=== PATIENT | female | born 1990 | race Hispanic/Latino ===

== ENCOUNTER 2017-05-24 18:06 | Emergency (ER) | payer MEDICAID ==
--- NOTE | 2017-05-24 18:48 | C.PDOC ---
History Of Present Illness Patient presents to ED requesting alcohol detox. She states she is a daily drinker , and last ETOH use was approx 7 hrs ago. She is c/o feeling mildly tremulous and nauseous. Time Seen by Provider: 05/24/17 18:45 Chief Complaint (Nursing): Substance Abuse History Per: Patient History/Exam Limitations: no limitations Onset/Duration Of Symptoms: Persistent Modifying Factor(s): Alcohol Severity: Moderate Associated Symptoms: denies: Anxiety, Depression, Suicidal Thoughts Past Medical History Reviewed: Historical Data, Nursing Documentation, Vital Signs Vital Signs: Last Vital Signs Temp 98.2 F 05/24/17 19:22 Pulse 98 H 05/24/17 19:22 Resp 16 05/24/17 19:22 BP 140/70 05/24/17 19:22 Pulse Ox 100 05/24/17 19:22 - Medical History PMH: Anxiety, Depression, Seizures (when withdrawing from alcohol) Family History: States: No Known Family Hx - Social History Hx Alcohol Use: Yes Hx Substance Use: No - Immunization History Hx Tetanus Toxoid Vaccination: No Hx Influenza Vaccination: No Hx Pneumococcal Vaccination: No Review Of Systems Except As Marked, All Systems Reviewed And Found Negative. Constitutional: Negative for: Fever, Chills Cardiovascular: Negative for: Chest Pain, Palpitations Respiratory: Negative for: Cough, Shortness of Breath Gastrointestinal: Positive for: Nausea. Negative for: Vomiting, Abdominal Pain Psych: Positive for: Other (alcohol dependence) Physical Exam - Physical Exam Appears: Well, Non-toxic, No Acute Distress Head: Normacephalic Eye(s): bilateral: Normal Inspection Oral Mucosa: Moist Cardiovascular: Rhythm Regular (mildly tachycardic ) Respiratory: Normal Breath Sounds, No Rales, No Rhonchi, No Wheezing Gastrointestinal/Abdominal: Normal Exam, Bowel Sounds, Soft, No Tenderness Extremity: Other (mild tremors of upper extremities ) Neurological/Psych: Oriented x3 ED Course And Treatment O2 Sat by Pulse Oximetry: 98 (RA) Pulse Ox Interpretation: Normal Progress Note: Spoke with crisis, no detox beds are currently available. Patient given PO ativan and PO zofran ODT. Rxs given for zofran ODT and librium taper. She was instructed to return tomorrow or call for prescreening, and understands she should return to ED if symptoms worsen. Disposition Counseled Patient/Family Regarding: Diagnosis, Need For Followup - Disposition Referrals: [facility] [Outside] Disposition: HOME/ ROUTINE Disposition Time: 19:15 Condition: STABLE Additional Instructions: RETURN TO ER AT LATER DATE FOR DETOX BED OR CALL [phone] FOR PRESCREENING USE MEDICATION NEEDED FOR NAUSEA RETURN TO ER IF YOU HAVE ANY CONCERNING SYMPTOMS Prescriptions: chlordiazePOXIDE [Chlordiazepoxide HCl] 25 mg PO PRN #28 cap Ondansetron [Zofran Odt] 4 mg PO Q8 PRN #10 odt PRN Reason: Nausea/Vomiting Instructions: Alcohol Dependence (ED) Print Language: UGANDAN - POA Present On Arrival: None - Clinical Impression Clinical Impression: Alcohol dependence
[2017-05-24 19:23] VITALS: BP 140/70; PULSE 98; RESP 16; TEMP 98.2
[2017-06-02 17:37] VITALS: O2SAT 98
== END 2017-05-24 19:22 | disposition home or self-care (01) ==
LOC: C.ER 18:06
DX: F10.20 Alcohol dependence, uncomplicated (principal); Y90.9 Presence of alcohol in blood, level not specified

== ENCOUNTER 2018-03-29 09:14 | Inpatient (IN) | payer MEDICAID, OTHER ==
--- NOTE | 2018-03-29 09:58 | C.PDOC ---
History Of Present Illness 27-year-old female, PMHx includes metastatic colon CA complaints of increasing abdominal pain x1 week. Pt notes she has had this pain intermittently for 4 months but now her breakthrough pain medication is not helping. Patient denies fever or vomiting. She admits to taking chronic pain meds, Fentanyl patch and Oxycodone without relief. Time Seen by Provider: 03/29/18 09:37 Chief Complaint (Nursing): Abdominal Pain History Per: Patient History/Exam Limitations: no limitations Current Symptoms Are (Timing): Still Present Past Medical History Reviewed: Historical Data, Nursing Documentation, Vital Signs Vital Signs: Last Vital Signs Temp 98 F 03/29/18 17:12 Pulse 76 03/29/18 17:12 Resp 18 03/29/18 17:12 BP 106/73 03/29/18 17:12 Pulse Ox 98 03/29/18 17:12 - Medical History PMH: Anxiety, Depression, Seizures (when withdrawing from alcohol) Family History: States: No Known Family Hx - Social History Hx Alcohol Use: Yes Hx Substance Use: No - Immunization History Hx Tetanus Toxoid Vaccination: No Hx Influenza Vaccination: No Hx Pneumococcal Vaccination: No Review Of Systems Constitutional: Negative for: Fever Cardiovascular: Negative for: Chest Pain Respiratory: Negative for: Shortness of Breath Gastrointestinal: Positive for: Abdominal Pain. Negative for: Vomiting Neurological: Negative for: Weakness, Numbness, Headache, Dizziness Physical Exam - Physical Exam Appears: Non-toxic, In Acute Distress (crying in painful distress), Chronically Ill (crying) Skin: Normal Color, Warm, Dry, No Rash Head: Atraumatic, Normacephalic Eye(s): bilateral: Normal Inspection, EOMI Nose: Normal Oral Mucosa: Moist Neck: Normal ROM Chest: Symmetrical Cardiovascular: Rhythm Regular, No Murmur Respiratory: Normal Breath Sounds, No Accessory Muscle Use Gastrointestinal/Abdominal: Soft, Tenderness (diffuse), No Guarding, No Rebound , Other (Ileostomy bag with brown stools) Extremity: Normal ROM, No Deformity, No Swelling Neurological/Psych: Oriented x3, Normal Speech ED Course And Treatment - Laboratory Results Result Diagrams: 03/29/18 10:22 03/29/18 10:22 O2 Sat by Pulse Oximetry: 100 (RA) Pulse Ox Interpretation: Normal Progress Note: Case discussed with Dr Laurent, agrees upon admission and requests [facility] for medical admission. Case discussed with Dr Mohan, who evaluated pt in ED and agreed upon admission. Disposition - Disposition Disposition: HOSPITALIZED Disposition Time: 12:00 Condition: STABLE - Clinical Impression Clinical Impression: Intractable abdominal pain, Metastatic colon cancer in female - Scribe Statement The provider has reviewed the documentation as recorded by the Scribe (Jyotsna Ariza) All medical record entries made by the Scribe were at my direction and personally dictated by me. I have reviewed the chart and agree that the record accurately reflects my personal performance of the history, physical exam, medical decision making, and the department course for this patient. I have also personally directed, reviewed, and agree with the discharge instructions and disposition.
[2018-03-29] MEDS ORDERED: Morphine 4 MG/ML VIAL ONE (10:29)
[2018-03-29 10:32] LABS: BASO % 0.5 % (0.0-2.0); EOS # 0.2 K/uL (0.0-0.7); HEMOGLOBIN 10.3 g/dL (11.0-16.0); LYMPH # 0.5 K/uL (1.0-4.3); LYMPH % 5.5 % (20.0-40.0); MEAN CELL VOLUME 85.4 fL (81.0-99.0); MEAN CORPUSCULAR HEMOGLOBIN 29.8 pg (27.0-31.0); MEAN CORPUSCULAR HGB CONC 34.9 g/dL (33.0-37.0); MEAN PLATELET VOLUME 6.3 fL (7.2-11.7); MONO # 0.8 K/uL (0.0-0.8); MONO % 9.1 % (0.0-10.0); NEUT # 7.2 K/uL (1.8-7.0); NEUT % 82.9 % (50.0-75.0); PLATELET COUNT 466 K/uL (130-400); RBC 3.44 Mil/uL (3.80-5.20); WHITE BLOOD COUNT 8.7 K/uL (4.8-10.8)
[2018-03-29 10:58] LABS: EOSINOPHIL 1 % (0-4); LYMPHOCYTE 2 % (20-40); MONOCYTE 9 % (0-10); NEUTROPHIL 88 % (50-75); PLATELET ESTIMATE SLIGHTLY INCREASED (NORMAL); TOTAL CELLS COUNTED 100
[2018-03-29 11:00] LABS: ANISOCYTOSIS SLIGHT
[2018-03-29 11:01] LABS: OVALOCYTES SLIGHT
[2018-03-29] MEDS ORDERED: HYDROmorphone 1 mg/ml ISec IVP STA ×2 (11:02→12:32)
[2018-03-29 11:03] LABS: ALB/GLOB RATIO 0.9 (1.0-2.1); ALBUMIN 3.5 g/dL (3.5-5.0); ALT/SGPT 31 U/L (9-52); AST/SGOT 29 U/L (14-36); BLOOD UREA NITROGEN 5 mg/dL (7-17); GFR AFRICAN-AMERICAN > 60; GFR NON-AFRICAN AMERICAN > 60; LIPASE 71 U/L (23-300)
[2018-03-29] MEDS ORDERED: HYDROmorphone 0.5 mg/0.5 ml ISec IVP STA (11:04)
[2018-03-29 13:04] LABS: HCG,QUALITATIVE URINE NEGATIVE (NEGATIVE)
[2018-03-29 13:11] LABS: SQUAMOUS EPITHIAL 1 /hpf (0-5); URINE BACTERIA RARE (<OCC); URINE BILIRUBIN NEGATIVE (NEGATIVE); URINE BLOOD 1+ (NEGATIVE); URINE CLARITY Clear (Clear); URINE COLOR Straw (YELLOW); URINE GLUCOSE (UA) NORMAL (Normal); URINE LEUKOCYTE ESTERASE 1+ Leu/uL (Negative); URINE PROTEIN NEGATIVE (NEGATIVE); URINE UROBILINOGEN NORMAL mg/dL (0.2-1.0)
[2018-03-29] MEDS: Sodium Chloride 0.9% 1,000 ML IV SCH ×2 (13:18→22:22)
[2018-03-29 14:14] LABS: BARBITURATES, UR NEGATIVE (NEGATIVE); BENZODIAZEPINES, UR NEGATIVE (NEGATIVE); PHENCYCLIDINE, UR NEGATIVE (NEGATIVE)
[2018-03-29 15:07] LABS: OPIATES, UR POSITIVE (NEGATIVE)
[2018-03-29] MEDS ORDERED: Oxycodone/Acetaminophen 5/325 mg Tab ONE (15:40)
[2018-03-29] MEDS: Oxycodone/Acetaminophen 5/325 mg Tab PO PRN (15:47)
--- NOTE | 2018-03-29 17:16 | CP.PCM.CON ---
History of Present Illness - History of Present Illness History of Present Illness: 27 year old F with h/o metastatic colon ca here complaining of diffuse increase in abdominal pain over last week. Patient states she sees oncologist Dr. Laurent who manages her pain. At home she takes oxycodone ER 60mg BID and oxycodone 10mg q4hr PRN for breakthrough pain which usually helps but has not been helping over the last week. Patient tried fentanyl patch in the past with no relief. Patient denies chest pain or shortness of breath, drowsiness with these medications, constipation, or other symptoms. Past Patient History - Infectious Disease Hx of Infectious Diseases: None - Past Medical History & Family History Past Medical History?: Yes - Past Social History Smoking Status: Heavy Smoker > 10 Cigarettes Daily - CARDIAC Hx Hypertension: No - PULMONARY Hx Respiratory Disorders: No - NEUROLOGICAL Hx Seizures: Yes (when withdrawing from alcohol) - HEENT Hx HEENT Problems: No - RENAL Hx Chronic Kidney Disease: No - ENDOCRINE/METABOLIC Hx Endocrine Disorders: No - HEMATOLOGICAL/ONCOLOGICAL Hx Human Immunodeficiency Virus (HIV): No - INTEGUMENTARY Hx Dermatological Problems: No - MUSCULOSKELETAL/RHEUMATOLOGICAL Hx Musculoskeletal Disorders: No - GASTROINTESTINAL Other/Comment: SMALL BOWEL CA - GENITOURINARY/GYNECOLOGICAL Hx Sexually Transmitted Disorders: No - PSYCHIATRIC Hx Anxiety: Yes Hx Depression: Yes Hx Substance Use: No - SURGICAL HISTORY Hx Orthopedic Surgery: Yes (R ANKLE) Other/Comment: BOWEL RESECTION - ANESTHESIA Hx Anesthesia: Yes Hx Anesthesia Reactions: No Hx Malignant Hyperthermia: No Meds Allergies/Adverse Reactions: Allergies Allergy/AdvReac Type Severity Reaction Status Date / Time gabapentin Allergy Verified 03/29/18 09:18 - Medications Medications: Current Medications Heparin Sodium (Porcine) (Heparin) 5,000 units SC Q12 CHASE Hydromorphone HCl (Dilaudid) 2 mg IVP Q4 PRN PRN Reason: Pain, severe (8-10) Last Admin: 03/29/18 13:42 Dose: 2 mg Sodium Chloride (Sodium Chloride 0.9%) 1,000 mls @ 100 mls/hr IV .Q10H CHASE Last Admin: 03/29/18 13:18 Dose: 100 mls/hr Oxycodone/Acetaminophen (Percocet 5/325 Mg Tab) 1 tab PO Q6H PRN PRN Reason: Pain, Mild (1-3) Stop: 04/01/18 15:47 Last Admin: 03/29/18 15:47 Dose: 1 tab Pantoprazole Sodium (Protonix Inj) 40 mg IVP DAILY CHASE Physical Exam - Constitutional Appears: Well - Respiratory Exam Respiratory Exam: Clear to Auscultation Bilateral, NORMAL BREATHING PATTERN - Cardiovascular Exam Cardiovascular Exam: REGULAR RHYTHM - GI/Abdominal Exam GI & Abdominal Exam: Normal Bowel Sounds, Soft - Extremities Exam Additional comments: warm, well perfused - Back Exam Back exam: NORMAL INSPECTION - Psychiatric Exam Psychiatric exam: Normal Affect, Normal Mood Results - Vital Signs Recent Vital Signs: Last Vital Signs Temp 98 F 03/29/18 13:18 Pulse 98 H 03/29/18 15:51 Resp 28 H 03/29/18 15:51 BP 100/57 L 03/29/18 15:51 Pulse Ox 98 03/29/18 13:18 - Labs Result Diagrams: 03/29/18 10:22 03/29/18 10:22 Labs: Laboratory Results - last 24 hr 03/29/18 03/29/18 03/29/18 09:59 10:22 10:22 WBC 8.7 RBC 3.44 L Hgb 10.3 L D Hct 29.4 L MCV 85.4 D MCH 29.8 MCHC 34.9 RDW 16.0 H Plt Count 466 H D MPV 6.3 L Neut % (Auto) 82.9 H Lymph % (Auto) 5.5 L [place] % (Auto) 9.1 Eos % (Auto) 2.0 Baso % (Auto) 0.5 Neut # (Auto) 7.2 H Lymph # (Auto) 0.5 L [place] # (Auto) 0.8 Eos # (Auto) 0.2 Baso # (Auto) 0.0 Neutrophils % (Manual) 88 H Lymphocytes % (Manual) 2 L Monocytes % (Manual) 9 Eosinophils % (Manual) 1 Platelet Estimate Slightly increased H Basophilic Stippling Slight Anisocytosis (manual) Slight Ovalocytes Slight Sodium 142 Potassium 4.0 Chloride 102 Carbon Dioxide 26 Anion Gap 17 BUN 5 L Creatinine 0.5 L Est GFR ( Amer) > 60 Est GFR (Non-Af Amer) > 60 Random Glucose 107 H Calcium 9.0 Total Bilirubin 0.3 AST 29 ALT 31 Alkaline Phosphatase 115 Total Protein 7.2 Albumin 3.5 D Globulin 3.7 Albumin/Globulin Ratio 0.9 L Lipase 71 Urine Color Urine Clarity Urine pH Ur Specific [place] Urine Protein Urine Glucose (UA) Urine Ketones Urine Blood Urine Nitrate Urine Bilirubin Urine Urobilinogen Ur Leukocyte Esterase Urine WBC (Auto) Urine RBC (Auto) Ur Squamous Epith Cells Urine Bacteria Urine HCG, Qual Urine Opiates Screen Positive H Urine Methadone Screen Negative Ur Barbiturates Screen Negative Ur Phencyclidine Scrn Negative Ur Amphetamines Screen Negative U Benzodiazepines Scrn Negative U Oth Cocaine Metabols Negative U Cannabinoids Screen Positive H 03/29/18 12:53 WBC RBC Hgb Hct MCV MCH MCHC RDW Plt Count MPV Neut % (Auto) Lymph % (Auto) [place] % (Auto) Eos % (Auto) Baso % (Auto) Neut # (Auto) Lymph # (Auto) [place] # (Auto) Eos # (Auto) Baso # (Auto) Neutrophils % (Manual) Lymphocytes % (Manual) Monocytes % (Manual) Eosinophils % (Manual) Platelet Estimate Basophilic Stippling Anisocytosis (manual) Ovalocytes Sodium Potassium Chloride Carbon Dioxide Anion Gap BUN Creatinine Est GFR ( Amer) Est GFR (Non-Af Amer) Random Glucose Calcium Total Bilirubin AST ALT Alkaline Phosphatase Total Protein Albumin Globulin Albumin/Globulin Ratio Lipase Urine Color Straw Urine Clarity Clear Urine pH 6.0 Ur Specific [place] 1.004 Urine Protein Negative Urine Glucose (UA) Normal Urine Ketones Negative Urine Blood 1+ H Urine Nitrate Negative Urine Bilirubin Negative Urine Urobilinogen Normal Ur Leukocyte Esterase 1+ H Urine WBC (Auto) 6 H Urine RBC (Auto) 5 H Ur Squamous Epith Cells 1 Urine Bacteria Rare Urine HCG, Qual Negative Urine Opiates Screen Urine Methadone Screen Ur Barbiturates Screen Ur Phencyclidine Scrn Ur Amphetamines Screen U Benzodiazepines Scrn U Oth Cocaine Metabols U Cannabinoids Screen Assessment & Plan - Assessment and Plan (Free Text) Assessment: Patient states she in 10/10 pain and unable to function at home 2/2 to pain. I have confirmed her doses of narcotics with her oncologist and recommend restarting her home meds along with the following: -restart home dose of oxycodone ER 60mg BID -restart home dose of oxycodone 10mg q4hr PRN -add 1mg hydromorphone IV q3h for breakthrough pain -bowel regimen
[2018-03-29] MEDS: HYDROmorphone 1 mg/ml ISec IVP PRN ×2 (18:16→22:19)
--- NOTE | 2018-03-29 18:20 | CP.PCM.CON ---
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 She was found to have disease recurrence locally and underwent surgery, colostomy, followed by chemotherapy and radiation completed around 6 weeks ago in [place], [place]. The patient has currently moved back here for additional treatment. Recent PET scan showing left ovarian mass with possible fistulous tract into rectum and new subcentimeter lung lesions. She has been complaining of increasing pain in the pelvic region with little relief after radiation therapy Past Patient History - Infectious Disease Hx of Infectious Diseases: None - Past Medical History & Family History Past Medical History?: Yes - Past Social History Smoking Status: Heavy Smoker > 10 Cigarettes Daily - CARDIAC Hx Hypertension: No - PULMONARY Hx Respiratory Disorders: No - NEUROLOGICAL Hx Seizures: Yes (when withdrawing from alcohol) - HEENT Hx HEENT Problems: No - RENAL Hx Chronic Kidney Disease: No - ENDOCRINE/METABOLIC Hx Endocrine Disorders: No - HEMATOLOGICAL/ONCOLOGICAL Hx Human Immunodeficiency Virus (HIV): No - INTEGUMENTARY Hx Dermatological Problems: No - MUSCULOSKELETAL/RHEUMATOLOGICAL Hx Musculoskeletal Disorders: No - GASTROINTESTINAL Other/Comment: SMALL BOWEL CA - GENITOURINARY/GYNECOLOGICAL Hx Sexually Transmitted Disorders: No - PSYCHIATRIC Hx Anxiety: Yes Hx Depression: Yes Hx Substance Use: No - SURGICAL HISTORY Hx Orthopedic Surgery: Yes (R ANKLE) Other/Comment: BOWEL RESECTION - ANESTHESIA Hx Anesthesia: Yes Hx Anesthesia Reactions: No Hx Malignant Hyperthermia: No Meds Allergies/Adverse Reactions: Allergies Allergy/AdvReac Type Severity Reaction Status Date / Time gabapentin Allergy Verified 03/29/18 09:18 - Medications Medications: Current Medications Heparin Sodium (Porcine) (Heparin) 5,000 units SC Q12 CHASE Hydromorphone HCl (Dilaudid) 2 mg IVP Q4 PRN PRN Reason: Pain, severe (8-10) Last Admin: 03/29/18 13:42 Dose: 2 mg Sodium Chloride (Sodium Chloride 0.9%) 1,000 mls @ 100 mls/hr IV .Q10H CHASE Last Admin: 03/29/18 13:18 Dose: 100 mls/hr Oxycodone/Acetaminophen (Percocet 5/325 Mg Tab) 1 tab PO Q6H PRN PRN Reason: Pain, Mild (1-3) Stop: 04/01/18 15:47 Last Admin: 03/29/18 15:47 Dose: 1 tab Pantoprazole Sodium (Protonix Inj) 40 mg IVP DAILY CHASE Results - Vital Signs Recent Vital Signs: Last Vital Signs Temp 98.2 F 03/29/18 17:45 Pulse 75 03/29/18 17:45 Resp 18 03/29/18 17:45 BP 103/65 03/29/18 17:45 Pulse Ox 100 03/29/18 17:45 - Labs Result Diagrams: 03/29/18 10:22 03/29/18 10:22 Labs: Laboratory Results - last 24 hr 03/29/18 03/29/18 03/29/18 09:59 10:22 10:22 WBC 8.7 RBC 3.44 L Hgb 10.3 L D Hct 29.4 L MCV 85.4 D MCH 29.8 MCHC 34.9 RDW 16.0 H Plt Count 466 H D MPV 6.3 L Neut % (Auto) 82.9 H Lymph % (Auto) 5.5 L [place] % (Auto) 9.1 Eos % (Auto) 2.0 Baso % (Auto) 0.5 Neut # (Auto) 7.2 H Lymph # (Auto) 0.5 L [place] # (Auto) 0.8 Eos # (Auto) 0.2 Baso # (Auto) 0.0 Neutrophils % (Manual) 88 H Lymphocytes % (Manual) 2 L Monocytes % (Manual) 9 Eosinophils % (Manual) 1 Platelet Estimate Slightly increased H Basophilic Stippling Slight Anisocytosis (manual) Slight Ovalocytes Slight Sodium 142 Potassium 4.0 Chloride 102 Carbon Dioxide 26 Anion Gap 17 BUN 5 L Creatinine 0.5 L Est GFR ( Amer) > 60 Est GFR (Non-Af Amer) > 60 Random Glucose 107 H Calcium 9.0 Total Bilirubin 0.3 AST 29 ALT 31 Alkaline Phosphatase 115 Total Protein 7.2 Albumin 3.5 D Globulin 3.7 Albumin/Globulin Ratio 0.9 L Lipase 71 Urine Color Urine Clarity Urine pH Ur Specific [place] Urine Protein Urine Glucose (UA) Urine Ketones Urine Blood Urine Nitrate Urine Bilirubin Urine Urobilinogen Ur Leukocyte Esterase Urine WBC (Auto) Urine RBC (Auto) Ur Squamous Epith Cells Urine Bacteria Urine HCG, Qual Urine Opiates Screen Positive H Urine Methadone Screen Negative Ur Barbiturates Screen Negative Ur Phencyclidine Scrn Negative Ur Amphetamines Screen Negative U Benzodiazepines Scrn Negative U Oth Cocaine Metabols Negative U Cannabinoids Screen Positive H 03/29/18 12:53 WBC RBC Hgb Hct MCV MCH MCHC RDW Plt Count MPV Neut % (Auto) Lymph % (Auto) [place] % (Auto) Eos % (Auto) Baso % (Auto) Neut # (Auto) Lymph # (Auto) [place] # (Auto) Eos # (Auto) Baso # (Auto) Neutrophils % (Manual) Lymphocytes % (Manual) Monocytes % (Manual) Eosinophils % (Manual) Platelet Estimate Basophilic Stippling Anisocytosis (manual) Ovalocytes Sodium Potassium Chloride Carbon Dioxide Anion Gap BUN Creatinine Est GFR ( Amer) Est GFR (Non-Af Amer) Random Glucose Calcium Total Bilirubin AST ALT Alkaline Phosphatase Total Protein Albumin Globulin Albumin/Globulin Ratio Lipase Urine Color Straw Urine Clarity Clear Urine pH 6.0 Ur Specific [place] 1.004 Urine Protein Negative Urine Glucose (UA) Normal Urine Ketones Negative Urine Blood 1+ H Urine Nitrate Negative Urine Bilirubin Negative Urine Urobilinogen Normal Ur Leukocyte Esterase 1+ H Urine WBC (Auto) 6 H Urine RBC (Auto) 5 H Ur Squamous Epith Cells 1 Urine Bacteria Rare Urine HCG, Qual Negative Urine Opiates Screen Urine Methadone Screen Ur Barbiturates Screen Ur Phencyclidine Scrn Ur Amphetamines Screen U Benzodiazepines Scrn U Oth Cocaine Metabols U Cannabinoids Screen
[2018-03-29] MEDS: Naproxen 550 mg Tab PO SCH (19:53)
[2018-03-29] MEDS: Lidocaine 5% Oint(35 gm) TOP SCH (20:00)
[2018-03-30] MEDS: Oxycodone/Acetaminophen 5/325 mg Tab PO PRN ×4 (00:04→17:03)
[2018-03-30 01:03] VITALS: RESP 20
[2018-03-30] MEDS: HYDROmorphone 1 mg/ml ISec IVP PRN ×6 (02:20→22:00)
[2018-03-30] MEDS: Naproxen 550 mg Tab PO SCH ×2 (09:25→17:04)
[2018-03-30] MEDS: Lidocaine 5% Oint(35 gm) TOP SCH ×3 (09:27→17:04)
[2018-03-30] MEDS: Sodium Chloride 0.9% 1,000 ML IV SCH ×2 (09:28→19:50)
[2018-03-30] MEDS ORDERED: Pneumococcal 23-Valent Vaccine IM ONE (10:00)
[2018-03-30] MEDS: oxyCODONE 40 mg ER Tab (oxyCONTIN) PO SCH ×2 (12:47→21:03)
--- NOTE | 2018-03-30 14:23 | PCM.PSYCH ---
Initial Psychiatric Evaluation - Initial Psychiatric Evaluation Type of Admission: Voluntary Legal Status: Capacity Chief Complaint (in patient's own words): "I'm miserable" History of Present Illness and Precipitating Events: HPI: Consultation was requested for her suicidal remark. She also threatened to leave AMA. She is well-known to this policy writer typist from previous admissions. This is a 27 year-old female with PMHx of alcohol use disorder, depression, and metastatic colon cancer admitted for pain management. Psychiatry consulted when patient was overheard crying on her phone saying "the pain is so bad, do I have to kill myself to make it stop?" Upon questioning, patient states she is not actually suicidal, and that she was just venting to her boyfriend because she feels so miserable and that she had not received medications in a timely manner. She complains of severe pain, depression, and anxiety. She says she is depressed b/c she "may be dying, and the pain is everywhere." She is receptive to medication for depression and anxiety. Denies hallucinations, suicidal or homicidal ideation. She contracts for safety. Psych hx: depression, alcoholism, multiple psych admissions, no attempts Family hx: grandfather (schizophrenia, commit suicide); aunt (depression, commit suicide) Social hx: lives with boyfriend; history of alcohol abuse with multiple detox, patient states she has been sober for the past 7 months Current Medications: Active Medications Generic Name Dose Route Start Last Admin Trade Name Freq PRN Reason Stop Dose Admin Clonazepam 1 mg 03/30/18 18:00 Klonopin PO BID CHASE Heparin Sodium (Porcine) 5,000 units 03/29/18 22:00 03/30/18 09:31 Heparin SC 5,000 units Q12 CHASE Administration Hydromorphone HCl 2 mg 03/29/18 18:15 03/30/18 10:20 Dilaudid IVP 2 mg Q4 PRN Administration Pain, severe (8-10) Sodium Chloride 1,000 mls @ 100 mls/hr 03/29/18 13:15 03/30/18 09:28 Sodium Chloride 0.9% IV 100 mls/hr .Q10H CHASE Administration Lidocaine 0.5 gm 03/29/18 19:45 03/30/18 14:05 Lidocaine 5% TOP 1 applic TID CHASE Administration Mirtazapine 15 mg 03/30/18 22:00 Remeron PO HS CHASE Naproxen 550 mg 03/29/18 19:15 03/30/18 09:25 Anaprox Ds PO 550 mg BID CHASE Administration Oxycodone HCl 40 mg 03/30/18 12:00 03/30/18 12:47 Oxycontin Extended Release Tab PO 40 mg Q12 CHASE Administration Oxycodone/Acetaminophen 1 tab 03/29/18 15:46 03/30/18 11:15 Percocet 5/325 Mg Tab PO 04/01/18 15:47 1 tab Q6H PRN Administration Pain, Mild (1-3) Pantoprazole Sodium 40 mg 03/30/18 10:00 03/30/18 09:25 Protonix Inj IVP 40 mg DAILY CHASE Administration Past Psychiatric History - Past Psychiatric History Previous Treatment History: Inpatient Pertinent Medical Hx (Current Medical&Sleep Prob, Allergies): Allergies Allergy/AdvReac Type Severity Reaction Status Date / Time gabapentin Allergy Verified 03/29/18 09:18 Ibuprofen [Motrin Tab] 600 mg PO Q6 #30 tab 09/18/17 Fentanyl 1 each TD MWF 03/29/18 Oxycodone HCl [Oxycodone HCl ER] 60 mg PO BID 03/29/18 oxyCODONE [oxycodone Hydrochloride] 10 mg PO Q4H 03/29/18 Review of Systems - Psychiatric Psychiatric: Abnormal Sleep Pattern, Anxiety, Depression, Difficulty Concentrating, Irritability. absent: Hallucinations, Homicidal Ideation, Suicidal Ideation Mental Status Examination - Personal Presentation Personal Presentation: Looks stated age - Affect Affect: Depressed, Other (intense, tearful) Additional comments: Tearful - Motor Activity Motor Activity: Calm - Reliability in Providing Information Reliability in Providing Information: Good - Speech Speech: Organized - Mood Mood: Depressed, Anxious - Formal Thought Process Formal Thought Process: No Impairment - Cognitive Functions Orientation: Person, Place, Situation, Time Sensorium: Alert Attention/Concentration: Attentive Estimate of Intelligence: Average Judgement: Intact, as evidence by: Insight regarding need for hospitalization Memory: Recent intact, as evidence by: Ability to recall events of the day, Remote intact, as evidenced by: Abilit to recall sig. life events - Risk Risk: Diminished functioning - Strength & Assets Inventory Strength & Assets Inventory: Cooperative - Limitations Limitations: Other (cancer with met) DSM 5 DX - DSM 5 DSM 5 Diagnosis: Major Depressive Disorder - severe, recurrent, w/o psychosis Alcohol use d/o - in early remission Borderline Pers. D/O - Recommended/Plan of Treatment Treatment Recommendations and Plan of Treatment: Start Remeron 15 mg PO qHS, will increase to 30 mg for depression Klonopin 1 mg PO bid for anxiety Psychotherapy given Refer to psych after d/c Grief counseling 33 min
--- NOTE | 2018-03-30 15:35 | CP.PCM.CON ---
History of Present Illness - History of Present Illness History of Present Illness: Palliative consult requested by Doctor campbell for pain management and goals of care discussion Patient is a 27 yo lady admitted from home with abdominal pain X 1 day. patient was diagnosed with colon cancer in 2016, had chemo Tx for about 5 months and was lost sight of until some time this year with exacerbation of cancer symptoms. patient had colon surgery with colostomy creation. She completed the course of chemo and radiation about 6 weeks ago. between than and now, patient was hospitalized a few times at different hospitals for management of cancer symptoms. Patient fallowed by Doctor Laurent for cancer treatment. PMH: Colon cancer, 2016, S/P colostomy, chemo and radiation Soc.Hx: single, lives with boyfriend, sy at [facility]. Hx: Grandmother at age of 80 from colon cancer. Review of Systems - Constitutional Constitutional: Weight Loss, Weakness - EENT Eyes: absent: As Per HPI, Blind Spots, Blurred Vision, Change in Vision, Decreased Night Vision, Diplopia, Discharge, Dry Eye, Exophthalmos, Floaters, Irritation, Itchy Eyes, Loss of Peripheral Vision, Pain, Photophobia, Requires Corrective Lenses, Sees Flashes, Spots in Vision, Tunnel Vision, Other Visual Disturbances, Loss of Vision, Other Ears: absent: As Per HPI, Decreased Hearing, Ear Discharge, Ear Pain, Tinnitus, Abnormal Hearing, Disequilibrium, Dizziness, Other Nose/Mouth/Throat: absent: As Per HPI, Epistaxis, Nasal Congestion, Nasal Discharge, Nasal Obstruction, Nasal Trauma, Nose Pain, Post Nasal Drip, Sinus Pain, Sinus Pressure, Bleeding Gums, Change in Voice, Dental Pain, Dry Mouth, Dysphagia, Halitosis, Hoarsness, Lip Swelling, Mouth Lesions, Mouth Pain, Odynophagia, Sore Throat, Throat Swelling, Tongue Swelling, Facial Pain, Neck Pain, Neck Mass, Other - Breasts Breasts: absent: As Per HPI, Change in Shape, Mass, Pain, Nipple Discharge, Nipple Inversion, Skin Changes, Swelling, Other - Cardiovascular Cardiovascular: absent: As Per HPI, Acrocyanosis, Chest Pain, Chest Pain at Rest , Chest Pain with Activity, Claudication, Diaphoresis, Dyspnea, Dyspnea on Exertion, Edema, Irregular Heart Rhythm, Pain Radiating to Arm/Neck/Jaw, Leg Edema, Leg Ulcers, Lightheadedness, Orthopnea, Palpitations, Paroxysmal Nocturnal Dyspnea, Pedal Edema, Radiating Pain, Rapid Heart Rate, Slow Heart Rate, Syncope, Other - Respiratory Respiratory: absent: As Per HPI, Cough, Dyspnea, Hemoptysis, Dyspnea on Exertion , Wheezing, Snoring, Stridor, Pain on Inspiration, Chest Congestion, Excessive Mucous Production, Change in Mucous Color, Pain with Coughing, Other - Gastrointestinal Additional comments: severe abdominal pain, colostomy status - Genitourinary Genitourinary: absent: As Per HPI, Change in Urinary Stream, Difficulty Urinating, Dysuria, Flank Pain, Hematuria, Pyuria, Nocturia, Urinary Incontinence, Urinary Frequency, Urinary Hesitance, Urinary Urgency, Voiding Freq/Small Amts, Freq UTI, Hx Renal/Bladder Calculi, Hx /Renal Surgery, Bladder Distension, Other - Reproductive: Female Reproductive:Female: Dysmenorrhea - Menstruation Menstruation: Dysmenorrhea - Musculoskeletal Musculoskeletal: absent: As Per HPI, Abnormal Gait, Arthralgias, Atrophy, Back Pain, Deformity, Joint Swelling, Limited Range of Motion, Loss of Height, Muscle Cramps, Muscle Weakness, Myalgias, Neck Pain, Numbness, Radiating Pain into Limb, Stiffness, Tingling, Other - Integumentary Integumentary: absent: As Per HPI, Acne, Alopecia, Bleeding Lesions, Change in Hair, Change in Nails, Change in Pigmentation, Changing Lesions, Dry Skin, Erythema, Furuncle, Hirsutism, Lesions, New Lesions, Non-Healing Lesions, Photosensitivity, Pruritus, Rash, Skin Pain, Skin Ulcer, Sores, Striae, Swelling , Unusual Bruising, Wounds, Jaundice, Other - Neurological Neurological: absent: As Per HPI, Abnormal Gait, Abnormal Hearing, Abnormal Movements, Abnormal Speech, Behavioral Changes, Burning Sensations, Confusion, Convulsions, Disequilibrium, Dizziness, Numbness, Focal Weakness, Frequent Falls , Headaches, Lack of Coordination, Loss of Vision, Memory Loss, Paresthesias, Radicular Pain, Restless Legs, Sensory Deficit, Syncope, Tingling, Tremor, Vertigo, Weakness, Other Visual Disturbances, Other - Psychiatric Psychiatric: Anxiety - Endocrine Endocrine: absent: As Per HPI, Change in Body Appearance, Change in Libido, Cold Intolorance, Deepening of Voice, Excessive Sweating, Fatigue, Flushing, Heat Intolorance, Increase in Ring/Shoe/Hat Size, Palpitations, Polydipsia, Polyphagia, Polyuria, Other - Hematologic/Lymphatic Hematologic: absent: As Per HPI, Easy Bleeding, Easy Bruising, Lymphadenopathy, Other Past Patient History - Infectious Disease Hx of Infectious Diseases: None - Past Medical History & Family History Past Medical History?: Yes - Past Social History Smoking Status: Heavy Smoker > 10 Cigarettes Daily - CARDIAC Hx Hypertension: No - PULMONARY Hx Respiratory Disorders: No - NEUROLOGICAL Hx Seizures: Yes (when withdrawing from alcohol) - HEENT Hx HEENT Problems: No - RENAL Hx Chronic Kidney Disease: No - ENDOCRINE/METABOLIC Hx Endocrine Disorders: No - HEMATOLOGICAL/ONCOLOGICAL Hx Human Immunodeficiency Virus (HIV): No - INTEGUMENTARY Hx Dermatological Problems: No - MUSCULOSKELETAL/RHEUMATOLOGICAL Hx Musculoskeletal Disorders: No - GASTROINTESTINAL Other/Comment: SMALL BOWEL CA - GENITOURINARY/GYNECOLOGICAL Hx Sexually Transmitted Disorders: No - PSYCHIATRIC Hx Anxiety: Yes Hx Depression: Yes Hx Substance Use: No - SURGICAL HISTORY Hx Orthopedic Surgery: Yes (R ANKLE) Other/Comment: BOWEL RESECTION - ANESTHESIA Hx Anesthesia: Yes Hx Anesthesia Reactions: No Hx Malignant Hyperthermia: No Meds Allergies/Adverse Reactions: Allergies Allergy/AdvReac Type Severity Reaction Status Date / Time gabapentin Allergy Verified 03/29/18 09:18 - Medications Medications: Current Medications Clonazepam (Klonopin) 1 mg PO BID [facility] Heparin Sodium (Porcine) (Heparin) 5,000 units SC Q12 [facility] Last Admin: 03/30/18 09:31 Dose: 5,000 units Hydromorphone HCl (Dilaudid) 2 mg IVP Q4 PRN PRN Reason: Pain, severe (8-10) Last Admin: 03/30/18 14:26 Dose: 2 mg Sodium Chloride (Sodium Chloride 0.9%) 1,000 mls @ 100 mls/hr IV .Q10H [facility] Last Admin: 03/30/18 09:28 Dose: 100 mls/hr Lidocaine (Lidocaine 5%) 0.5 gm TOP TID [facility] Last Admin: 03/30/18 14:05 Dose: 1 applic Mirtazapine (Remeron) 15 mg PO HS [facility] Naproxen (Anaprox Ds) 550 mg PO BID [facility] Last Admin: 03/30/18 09:25 Dose: 550 mg Oxycodone HCl (Oxycontin Extended Release Tab) 40 mg PO Q12 [facility] Last Admin: 03/30/18 12:47 Dose: 40 mg Oxycodone/Acetaminophen (Percocet 5/325 Mg Tab) 1 tab PO Q6H PRN PRN Reason: Pain, Mild (1-3) Stop: 04/01/18 15:47 Last Admin: 03/30/18 11:15 Dose: 1 tab Pantoprazole Sodium (Protonix Inj) 40 mg IVP DAILY [facility] Last Admin: 03/30/18 09:25 Dose: 40 mg Physical Exam - Constitutional Appears: Chronically Ill - Head Exam Head Exam: ATRAUMATIC, NORMAL INSPECTION, NORMOCEPHALIC - Eye Exam Eye Exam: EOMI, Normal appearance, PERRL Pupil Exam: NORMAL ACCOMODATION, PERRL - ENT Exam ENT Exam: Mucous Membranes Moist, Normal Exam - Neck Exam Neck exam: Positive for: Normal Inspection - Respiratory Exam Respiratory Exam: Clear to Auscultation Bilateral, NORMAL BREATHING PATTERN - Cardiovascular Exam Cardiovascular Exam: REGULAR RHYTHM - GI/Abdominal Exam Additional comments: colostomy status - Rectal Exam Rectal Exam: Deferred - Extremities Exam Extremities exam: Positive for: normal inspection - Back Exam Back exam: NORMAL INSPECTION - Neurological Exam Neurological exam: Alert, Oriented x3 - Psychiatric Exam Psychiatric exam: Anxious - Skin Skin Exam: Pallor Results - Vital Signs Recent Vital Signs: Last Vital Signs Temp 98 F 03/30/18 08:14 Pulse 79 03/30/18 08:14 Resp 20 03/30/18 08:14 BP 97/63 L 03/30/18 08:14 Pulse Ox 97 03/30/18 14:00 - Labs Result Diagrams: 03/29/18 10:22 03/29/18 10:22 Assessment & Plan - Assessment and Plan (Free Text) Assessment: Palliative consult Full Code, there is no Advance directive on chart, PPS 40 % I reviewed Medical records, all diagnostic studies, examined and interviewed patient in the bed Patent is alert, oriented x 3, admitting to severe anxiety due to diagnosis and current status. Physical exam is significant for colostomy status and reported severe pain to abdominal area. Patient reports pain is affecting her diet, sleep and mood. She reports sleeping at increments of 45 min at night and is waken by the pain. Patent also reports weight loss and inability to ambulate due to weakness. I elicited her understanding of the diagnosis. patient is fully aware and admits fear of dying. Patient denies any suicidal ideation, but often says it, when on the phone with her boyfriend. She explains it as sign of her despair. We reviewed pain meds. patient admits Dilaudid works well for her and that at [facility] she was on Morphine drip for pain. Patient is under the impression that she was to get extensive surgery as her colon cancer has spread to surrounding organs. The PET scan is worrisome for small spots on the lungs. patient feels , surgery is being delayed while " her time is xochitl'. Patient admits being ready to have any extensive surgery as needed. She admits she is not ready to and is begging for her life. I reassured her I was to talk to Doctor Carl and see what was the plan regarding Sx. After discussing the case with Doctor Laurent I learned that surgery is nit an option due to wide spread cancer. Doctor Laurent spoke to Oncology Surgeons at [facility] and was seen as unoperable. Doctor Laurent was to see patient later today and discuss it with patient. Impression * Pain cancer related * Severe anticipatory anxiety and fear of deth * Weight loss * Body image disturbance due to colostomy * Weakness * Poor appetite * Insomnia due to condition Suggestion * Continue current pain management * Provide private room if possible for this young lady, to allow some privacy and quiet environment * Pastoral Care for spiritual support * Comfort care may be appropriate if decided against surgery. That discussion will be especially difficult Palliative care will meet with patient in am , after she talks to Doctor Laurent today. Advance care planing 30 min
[2018-03-30] MEDS: Oxycodone/Acetaminophen 5/325 mg Tab PO SCH ×2 (19:46→23:55)
--- NOTE | 2018-03-30 19:51 | CP.PCM.PN ---
Subjective - Date & Time of Evaluation Date of Evaluation: 03/30/18 Time of Evaluation: 19:46 - Subjective Subjective: The patient is feeling a little better, discussed results of PET scan with patient. Plan- PET scan consistent with lung mets, most of them subcentimeter nodules. Will refer patient to [facility] and GI oncology, will need pelvic exenteration, CAT scan of lungs prior to surgery to evaluate lung lesions. Above discussed with patient. Possible D/C home tomorrow Objective - Vital Signs/Intake and Output Vital Signs (last 24 hours): Temp Pulse Resp BP Pulse Ox 98.2 F 69 20 102/61 99 03/30/18 15:45 03/30/18 15:45 03/30/18 15:45 03/30/18 15:45 03/30/18 15:45 Intake and Output: 03/30/18 03/31/18 18:59 06:59 Intake Total 850 Output Total 150 Balance 700 - Medications Medications: Current Medications Clonazepam (Klonopin) 1 mg PO BID [facility] Last Admin: 03/30/18 17:07 Dose: 1 mg Heparin Sodium (Porcine) (Heparin) 5,000 units SC Q12 [facility] Last Admin: 03/30/18 09:31 Dose: 5,000 units Hydromorphone HCl (Dilaudid) 2 mg IVP Q4 PRN PRN Reason: Pain, severe (8-10) Last Admin: 03/30/18 18:01 Dose: 2 mg Sodium Chloride (Sodium Chloride 0.9%) 1,000 mls @ 100 mls/hr IV .Q10H [facility] Last Admin: 03/30/18 09:28 Dose: 100 mls/hr Lidocaine (Lidocaine 5%) 0.5 gm TOP TID [facility] Last Admin: 03/30/18 17:04 Dose: 1 applic Mirtazapine (Remeron) 15 mg PO HS [facility] Naproxen (Anaprox Ds) 550 mg PO BID [facility] Last Admin: 03/30/18 17:04 Dose: 550 mg Oxycodone HCl (Oxycontin Extended Release Tab) 40 mg PO Q12 [facility] Last Admin: 03/30/18 12:47 Dose: 40 mg Oxycodone/Acetaminophen (Percocet 5/325 Mg Tab) 2 tab PO Q4 [facility] Stop: 04/02/18 20:01 Pantoprazole Sodium (Protonix Inj) 40 mg IVP DAILY [facility] Last Admin: 03/30/18 09:25 Dose: 40 mg - Labs Labs: 03/29/18 10:22 03/29/18 10:22
--- NOTE | 2018-03-31 01:02 | PN ---
DATE: 03/30/2018 SUBJECTIVE: The patient was seen by me at 8 p.m. The patient is currently somewhat comfortable, received Dilaudid injection, complaining of increasing pain, she is also crying with severe pain, somewhat depressed because of that and she is also complaining about the pain to her boyfriend. The pain is so worse that she wanted to kill herself, that is what she was telling. The nurse noticed that and the patient was placed on one-to-one, Physiatric evaluation was also called. The patient is currently feeling okay. She denies any chest pain. She denies any shortness of breath. She is eating okay. Having loose BM through the colostomy, also rectally she had some BM. PHYSICAL EXAMINATION: VITAL SIGNS: Today, temperature is 98.2, pulse 75, blood pressure 103/65, respirations 18 and saturation is 100% on room air. Clinical examination is unremarkable. ASSESSMENT AND PLAN: The patient was seen by pain specialist, oncologist, psychiatrist, as well as Palliative Care consultation. Clinically, the patient is stable at this time. We will continue to control the pain at this time. Increase the Percocet to 2 tablets every 4 hourly and Dilaudid as needed. Intravenous fluid. Labs tomorrow and we will follow up the patient. Riley Mohan MD
[2018-03-31] MEDS: HYDROmorphone 1 mg/ml ISec IVP PRN ×6 (01:54→22:31)
[2018-03-31] MEDS: Oxycodone/Acetaminophen 5/325 mg Tab PO SCH ×5 (03:44→20:15)
--- NOTE | 2018-03-31 04:53 | HP ---
The patient was seen by me in the emergency room. Patient of Dr. Laurent. CHIEF COMPLAINT: Abdominal pain, worsening, intractable. HISTORY OF PRESENT ILLNESS: A 27-year-old female with a history of colon cancer diagnosed in 2016, underwent surgical interventions and also chemotherapy for 5 months and following that the patient had recurrent tumor, underwent multiple surgeries, colostomy, chemotherapy, radiation. Being seen by oncologist on and off. Went to see oncologist today, because of the worsening symptoms, the patient was sent to the emergency room. The patient is still having increasing pain over the lower abdomen, and also rectal area burning sensation noted, sometimes associated with severe abdominal colicky pain, unbearable pain noted. The patient at home takes multiple pain medications including Percocet, OxyContin, and also other pain medications in spite of that continues to have worsening pain. The patient recently had a PET scan which is showing left ovarian mass and possible fistulous tract into the rectum and also new lung lesions. Because of the worsening pain, the patient came to the emergency room. PAST MEDICAL HISTORY: The patient had a history of colon cancer, diagnosed in 2016. Surgical intervention and chemotherapy and also multiple surgical interventions including colostomy, chemotherapy, radiation for the recurrent tumor. PERSONAL HISTORY: The patient is a smoker. The patient also hospitalized with depression, alcohol dependence in the past. ALLERGIES: ALLERGIC TO GABAPENTIN. REVIEW OF SYSTEMS: Noted from the chart, currently complaining of increasing abdominal pain. No nausea. No vomiting. Denies any leg swelling. The patient is not able to eat well. Feeling somewhat depressed on and off. PHYSICAL EXAMINATION: VITAL SIGNS: Temperature 98, pulse 71, blood pressure 100/57, respiration is 28. CHEST: Bilateral good air entry. HEART: Regular heart sound. ABDOMEN: Nontender abdomen. The patient has a colostomy on the right iliac fossa. EXTREMITIES: No pedal edema. THERAPEUTIC RECREATION DIRECTOR: Alert, awake, oriented. The patient is somewhat depressed at this time. LABORATORY DATA: The patient's hospital labs reviewed in the emergency room which was nonspecific. WBC is 8.7, hemoglobin is 10.3. Toxicology positive for opiates as well as cannabis. Urine, 1+ blood noted, nonspecific otherwise. CMP also noted. ASSESSMENT AND RECOMMENDATIONS: A 27-year-old female with multiple medical history including alcohol dependency, nicotine use, chronic smoker admitted with a history of recurrent colon cancer associated with multiple radiation and chemotherapy, now having increasingly worsening abdominal pelvic pain, and associated with rectal pain, intractable pain, uncontrollable. We will get the pain consultation, pain medication management, psychiatric evaluation, oncology evaluation called. DVT and GI prophylaxis. Continue with IV fluid, pain management and will follow up the patient. I explained the plan to the patient. Riley Mohan MD
[2018-03-31] MEDS: Sodium Chloride 0.9% 1,000 ML IV SCH ×2 (05:43→17:52)
[2018-03-31 07:29] LABS: BASO % 0.7 % (0.0-2.0); EOS # 0.1 K/uL (0.0-0.7); EOS % 1.9 % (0.0-4.0); LYMPH # 0.6 K/uL (1.0-4.3); MEAN CELL VOLUME 86.3 fL (81.0-99.0); MEAN CORPUSCULAR HEMOGLOBIN 29.4 pg (27.0-31.0); MEAN CORPUSCULAR HGB CONC 34.1 g/dL (33.0-37.0); MEAN PLATELET VOLUME 6.8 fL (7.2-11.7); MONO # 0.7 K/uL (0.0-0.8); MONO % 13.4 % (0.0-10.0); NEUT # 3.9 K/uL (1.8-7.0); RBC 2.78 Mil/uL (3.80-5.20); RED CELL DISTRIBUTION WIDTH 15.2 % (11.5-14.5); WHITE BLOOD COUNT 5.3 K/uL (4.8-10.8)
[2018-03-31 07:41] LABS: HEMOGLOBIN 8.2 g/dL (11.0-16.0)
[2018-03-31 07:42] LABS: ALB/GLOB RATIO 0.9 (1.0-2.1); ALBUMIN 2.7 g/dL (3.5-5.0); ALT/SGPT 27 U/L (9-52); AST/SGOT 20 U/L (14-36); BLOOD UREA NITROGEN 9 mg/dL (7-17); CALCIUM 8.2 mg/dl (8.6-10.4); GFR AFRICAN-AMERICAN > 60; GFR NON-AFRICAN AMERICAN > 60
[2018-03-31] MEDS: Naproxen 550 mg Tab PO SCH ×2 (08:59→17:51)
[2018-03-31] MEDS: oxyCODONE 40 mg ER Tab (oxyCONTIN) PO SCH ×2 (08:59→22:02)
[2018-03-31] MEDS: Lidocaine 5% Oint(35 gm) TOP SCH ×3 (09:05→17:51)
--- NOTE | 2018-03-31 13:39 | PCM.PYCHPN ---
Psychiatric Progress Note - Psychiatric Progress Note Patient seen today, length of contact: 15 min Patient Chief Complaint: "I'm sleepy" Problems Identified/Issues Discussed: She is seen, chart reviewed Still somewhat depressed but much calmer and not suicidal Still easily irate, which is her baseline Support given She is yet to talk with the surgeon re no-operations, but she says she is ready to continue with other chemo if needed. However, deep down, she relies on this surgery a lot - and as per her records it is not going to happen, she is inoperable She will need lots of support after that conversation - discussed with staff. Medication Change: Yes Medical Record Reviewed: Yes Mental Status Examination - Cognitive Function Orientation: Person, Place, Situation, Time Memory: Impaired Attention: Poor Concentration: Poor Association: WNL Fund of Knowledge: WNL - Mood Mood: Depressed, Anxious - Affect Affect: Constricted, Depressed, Other (intense, tearful) - Speech Speech: Appropriate, Soft - Formal Thought Process Formal Thought Process: No Impairment - Suicidal Ideation Suicidal Ideation: No - Homicidal Ideation Homicidal Ideation: No Goal/Treatment Plan - Goal/Treatment Plan Need for Continued Stay: Severe functional impairment, Other (medical) Progress Toward Problem(s) and Goals/Treatment Plan: Remeron 15 mg PO qHS, will increase to 30 mg for depression tomorrow Klonopin 1 mg PO bid for anxiety Psychotherapy given Refer to psych after d/c Grief counseling
--- NOTE | 2018-03-31 20:18 | CP.PCM.PN ---
Subjective - Date & Time of Evaluation Date of Evaluation: 03/31/18 Time of Evaluation: 20:15 - Subjective Subjective: The patients pain is somewhat better, eating better, ambulatory. Discussed plan with patient again, will refer to surgery, am concerned about new pulmonary nodules with the elevation of CEA level. Replace the potassium, prescriptions for pain will be with the nurse Objective - Vital Signs/Intake and Output Vital Signs (last 24 hours): Temp Pulse Resp BP Pulse Ox 98 F 75 20 103/69 100 03/31/18 15:00 03/31/18 15:00 03/31/18 15:00 03/31/18 15:00 03/31/18 15:00 - Medications Medications: Current Medications Clonazepam (Klonopin) 1 mg PO BID [facility] Last Admin: 03/31/18 17:52 Dose: 1 mg Heparin Sodium (Porcine) (Heparin) 5,000 units SC Q12 [facility] Last Admin: 03/31/18 09:11 Dose: 5,000 units Hydromorphone HCl (Dilaudid) 2 mg IVP Q4 PRN PRN Reason: Pain, severe (8-10) Last Admin: 03/31/18 17:51 Dose: 2 mg Sodium Chloride (Sodium Chloride 0.9%) 1,000 mls @ 100 mls/hr IV .Q10H [facility] Last Admin: 03/31/18 17:52 Dose: 100 mls/hr Potassium Chloride (Potassium Chloride 20 Meq/100 Ml) 20 meq in 100 mls @ 50 mls/hr IVPB ONCE ONE Stop: 03/31/18 21:54 Lidocaine (Lidocaine 5%) 0.5 gm TOP TID [facility] Last Admin: 03/31/18 17:51 Dose: 1 applic Mirtazapine (Remeron) 15 mg PO HS [facility] Last Admin: 03/30/18 21:03 Dose: 15 mg Naproxen (Anaprox Ds) 550 mg PO BID [facility] Last Admin: 03/31/18 17:51 Dose: 550 mg Oxycodone HCl (Oxycontin Extended Release Tab) 40 mg PO Q12 [facility] Last Admin: 03/31/18 08:59 Dose: 40 mg Oxycodone/Acetaminophen (Percocet 5/325 Mg Tab) 2 tab PO Q4 [facility] Stop: 04/02/18 20:01 Last Admin: 05/16/18 16:01 Dose: 2 tab Pantoprazole Sodium (Protonix Inj) 40 mg IVP DAILY [facility] Last Admin: 03/31/18 09:09 Dose: 40 mg - Labs Labs: 03/31/18 07:19 03/31/18 07:19
[2018-03-31] MEDS ORDERED: HYDROmorphone 1 mg/ml ISec IVP STA (20:33)
[2018-04-01] MEDS: Sodium Chloride 0.9% 1,000 ML IV SCH ×3 (01:15→12:19)
[2018-04-01] MEDS: HYDROmorphone 1 mg/ml ISec IVP PRN ×3 (02:32→15:00)
[2018-04-01] MEDS: Oxycodone/Acetaminophen 5/325 mg Tab PO SCH ×5 (04:06→16:11)
[2018-04-01 07:57] VITALS: TEMP 98.4
[2018-04-01] MEDS: oxyCODONE 40 mg ER Tab (oxyCONTIN) PO SCH (10:05)
[2018-04-01] MEDS: Naproxen 550 mg Tab PO SCH ×2 (10:07→17:09)
[2018-04-01] MEDS: Lidocaine 5% Oint(35 gm) TOP SCH ×3 (10:12→17:11)
[2018-04-01] MEDS ORDERED: POLYETHYLENE GLYCOL 3350 17 GM/Dose PACKET PO SCH (10:45)
[2018-04-01] MEDS ORDERED: HYDROmorphone 1 mg/ml ISec IVP STA (10:45)
--- NOTE | 2018-04-01 12:25 | PCM.PYCHPN ---
Psychiatric Progress Note - Psychiatric Progress Note Patient seen today, length of contact: 16 min Patient Chief Complaint: "I'm sleepy" Problems Identified/Issues Discussed: The pt is seen, chart reviewed, case discussed with staff. Support given No new symptoms reported, improving slowly and needs more time No SEs from medications, risks discussed. After care discussed She is crying but bc of "pain" Denies SI Medication Change: Yes Medical Record Reviewed: Yes Mental Status Examination - Cognitive Function Orientation: Person, Place, Situation, Time Memory: Impaired Attention: Poor Concentration: Poor Association: WNL Fund of Knowledge: WNL - Mood Mood: Depressed, Anxious - Affect Affect: Constricted, Depressed, Other (intense, tearful) - Speech Speech: Appropriate, Soft - Formal Thought Process Formal Thought Process: No Impairment - Suicidal Ideation Suicidal Ideation: No - Homicidal Ideation Homicidal Ideation: No Goal/Treatment Plan - Goal/Treatment Plan Need for Continued Stay: Severe functional impairment, Other (medical) Progress Toward Problem(s) and Goals/Treatment Plan: Remeron 30 mg for depression Klonopin 1 mg PO bid for anxiety Psychotherapy given Refer to psych after d/c Grief counseling
[2018-04-01 15:30] LABS: BASO # 0.1 K/uL (0.0-0.2); BASO % 0.8 % (0.0-2.0); EOS # 0.3 K/uL (0.0-0.7); EOS % 3.6 % (0.0-4.0); HEMOGLOBIN 9.2 g/dL (11.0-16.0); LYMPH # 0.5 K/uL (1.0-4.3); LYMPH % 6.8 % (20.0-40.0); MEAN CORPUSCULAR HEMOGLOBIN 28.9 pg (27.0-31.0); MEAN CORPUSCULAR HGB CONC 33.6 g/dL (33.0-37.0); MEAN PLATELET VOLUME 6.5 fL (7.2-11.7); MONO # 0.8 K/uL (0.0-0.8); MONO % 10.7 % (0.0-10.0); NEUT # 6.2 K/uL (1.8-7.0); NEUT % 78.1 % (50.0-75.0); PLATELET COUNT 404 K/uL (130-400); RBC 3.19 Mil/uL (3.80-5.20); RED CELL DISTRIBUTION WIDTH 15.5 % (11.5-14.5); WHITE BLOOD COUNT 7.9 K/uL (4.8-10.8)
[2018-04-01 15:50] LABS: BLOOD UREA NITROGEN 9 mg/dL (7-17); CALCIUM 8.6 mg/dl (8.6-10.4); GFR AFRICAN-AMERICAN > 60; GFR NON-AFRICAN AMERICAN > 60
[2018-04-01 15:51] LABS: EOSINOPHIL 3 % (0-4); LYMPHOCYTE 9 % (20-40); MONOCYTE 6 % (0-10); NEUTROPHIL 82 % (50-75); TOTAL CELLS COUNTED 100
[2018-04-01 15:52] LABS: ANISOCYTOSIS SLIGHT; HYPOCHROMIC SLIGHT; PLATELET ESTIMATE NORMAL (NORMAL); POLYCHROMIC SLIGHT
--- NOTE | 2018-04-01 16:42 | CP.PCM.PN ---
Subjective - Date & Time of Evaluation Date of Evaluation: 04/01/18 Time of Evaluation: 16:42 - Subjective Subjective: awake, alert, participated with physical therapy. Objective - Vital Signs/Intake and Output Vital Signs (last 24 hours): Temp Pulse Resp BP Pulse Ox 98.4 F 81 20 101/62 99 04/01/18 07:53 04/01/18 07:53 04/01/18 07:53 04/01/18 07:53 04/01/18 07:53 Intake and Output: 04/01/18 04/01/18 06:59 18:59 Intake Total 900 Output Total 700 Balance 200 - Medications Medications: Current Medications Clonazepam (Klonopin) 1 mg PO BID [facility] Last Admin: 04/01/18 10:05 Dose: 1 mg Docusate Sodium (Colace) 100 mg PO BID [facility] Last Admin: 04/01/18 11:07 Dose: 100 mg Escitalopram Oxalate (Lexapro) 5 mg PO DAILY [facility] Last Admin: 04/01/18 15:14 Dose: 5 mg Heparin Sodium (Porcine) (Heparin) 5,000 units SC Q12 [facility] Last Admin: 04/01/18 10:06 Dose: 5,000 units Hydromorphone HCl (Dilaudid) 2 mg IVP Q4 PRN PRN Reason: Pain, severe (8-10) Last Admin: 04/01/18 15:00 Dose: 2 mg Lidocaine (Lidocaine 5%) 0.5 gm TOP TID [facility] Last Admin: 04/01/18 15:18 Dose: 1 applic Mirtazapine (Remeron) 30 mg PO HS [facility] Naproxen (Anaprox Ds) 550 mg PO BID [facility] Last Admin: 04/01/18 10:07 Dose: 550 mg Oxycodone HCl (Oxycontin Extended Release Tab) 40 mg PO Q12 [facility] Last Admin: 04/01/18 10:05 Dose: 40 mg Oxycodone/Acetaminophen (Percocet 5/325 Mg Tab) 2 tab PO Q4 [facility] Stop: 04/02/18 20:01 Last Admin: 04/01/18 16:11 Dose: 2 tab Pantoprazole Sodium (Protonix Inj) 40 mg IVP DAILY [facility] Last Admin: 04/01/18 10:06 Dose: 40 mg Polyethylene Glycol (Miralax) 17 gm PO DAILY [facility] Last Admin: 04/01/18 11:07 Dose: 17 gm - Labs Labs: 04/01/18 15:24 04/01/18 15:24 Assessment and Plan - Assessment and Plan (Free Text) Assessment: 27 year old female with advanced colon cancer, seen and examined. In moderate distress with pain. Discussed with DR Mann, given prescriptions for pain meds, plan to discharge home as per DR Mohan. Wheelchair being arranged by the case consultant. Patient varbalized that she can get a cab and go home. Advised to follow up with her oncologyst for further management.
[2018-04-01 17:16] VITALS: BP 95/60; PULSE 75; O2SAT 100
--- NOTE | 2018-04-02 00:45 | PN ---
DATE: 03/31/2018 The patient was seen by me on 03/31/2018 at 6:30 p.m. SUBJECTIVE: The patient was seen by me with Dr. Laurent in the patient's room. The patient was given information about the overall condition. She was having increasingly lower abdominal pain and was not feeling well. She was asking for more pain medication. OBJECTIVE: Clinically, vital signs were stable. The patient was able to eat well. She was having some painful bowel movements. Colostomy have output, but harder. No fever or chills. On examination, no new findings. The patient was given information about these and PET scan as well as CAT scan. Discussed with the patient regarding the further management by Dr. Anaya Laurent. Information was given in detail. The patient understand. She will be discharged possibly tomorrow on 04/01/2018. We will follow the patient. Meanwhile, we will continue the current pain management. Riley Mohan MD
--- NOTE | 2018-04-02 10:17 | DS ---
HISTORY OF PRESENT ILLNESS: A 27-year-old female with history of colon cancer diagnosed in 2016, underwent multiple surgery, chemotherapy, and also followed by a recurrent surgical intervention for recurrence of the tumor with colostomy, chemotherapy, and radiation. The patient went to see Dr. Laurent, the oncologist. Because of the worsening pain, she was sent to the emergency room. In the emergency room, patient was given multiple pain medications. In spite of that, she has pain in the lower abdomen area that was not improving, her condition got worse. Intractable pain was noted. The patient needed hospitalization. COURSE IN THE HOSPITAL: The patient was admitted to the regular medical floor, given multiple pain medications including Dilaudid 2 mg every 4 hours, along with Percocet 5 mg tablet two tablets every 4 hours. Pain was slightly controlled. She was also seen by pain specialist and health support specialist. The patient was given every information about the overall prognosis and diagnosis. Recent PET scan showing evidence of lesions in the pelvic area and also micro nodules in the lungs, possibly of metastatic disease. The patient was and the patient was crying and she was very upset with the diagnosis, but she will be seeing a specialist at [facility] or [facility] [place] for further management. She will follow up with oncologist. The patient is clinically stable for discharge. She will continue the pain management as per oncologist. We will follow up with the patient. The patient will follow up with oncologist. She will follow up with oncological surgeon as an outpatient. FINAL DIAGNOSES: Very severe intractable pelvic pain related to the cancer and post treatment, metastatic colon cancer. Riley Mohan MD
== END 2018-04-01 18:42 | disposition home or self-care (01) | DRG 463 ==
LOC: C.ER 09:14 → C.3T 12:21 → OBSVTOIN 03-31 20:13
PROVIDERS: ADMIT Internal Medicine; ATTEND Internal Medicine
DX: G89.3 Neoplasm related pain (acute) (chronic) (principal); F33.2 Major depressive disorder, recurrent severe without psychotic features; F06.4 Anxiety disorder due to known physiological condition; C18.9 Malignant neoplasm of colon, unspecified; C79.9 Secondary malignant neoplasm of unspecified site; Z93.3 Colostomy status; Z51.5 Encounter for palliative care; G47.00 Insomnia, unspecified; F17.200 Nicotine dependence, unspecified, uncomplicated; Z68.1 Body mass index [BMI] 19.9 or less, adult

== ENCOUNTER 2018-04-02 00:10 | Emergency (ER) | payer MEDICAID ==
[2018-04-02 00:27] VITALS: RESP 18
--- NOTE | 2018-04-02 00:40 | C.PDOC ---
History Of Present Illness The patient presents to the ED requesting pain medication. 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 Patient states she ran out of her pain medication and is unable to fill them until the morning. Patient denies fever, chills. Time Seen by Provider: 04/02/18 00:39 Chief Complaint (Nursing): Pain, Chronic History Per: Patient History/Exam Limitations: no limitations Onset/Duration Of Symptoms: Hrs Current Symptoms Are (Timing): Still Present Severity: Moderate Pain Scale Rating Of: 5 Recent travel outside of the [place]: No Additional History Per: Patient Past Medical History Reviewed: Historical Data, Nursing Documentation, Vital Signs Vital Signs: Last Vital Signs Temp 98.9 F 04/02/18 00:23 Pulse 92 H 04/02/18 00:23 Resp 18 04/02/18 00:23 BP 115/80 04/02/18 00:23 Pulse Ox 97 04/02/18 01:08 - Medical History PMH: Anxiety, Depression, 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 Negative for: Fever, Chills Cardiovascular: Negative for: Chest Pain, Palpitations Respiratory: Negative for: Cough, Shortness of Breath Gastrointestinal: Negative for: Nausea, Vomiting, Abdominal Pain Skin: Negative for: Rash, Lesions, Jaundice, Bruising Neurological: Negative for: Weakness, Numbness Physical Exam - Physical Exam Appears: Non-toxic, Other (in mild painful distress, tearful ) Skin: Warm, Dry Head: Normacephalic Eye(s): bilateral: Normal Inspection Oral Mucosa: Moist Neck: Supple Chest: Symmetrical, No Deformity, No Tenderness Cardiovascular: Rhythm Regular, No Murmur Respiratory: Normal Breath Sounds, No Rales, No Rhonchi, No Wheezing Gastrointestinal/Abdominal: Soft, Tenderness (diffuse ), No Guarding, No Rebound , Other (colostomy to right side ) Extremity: Normal ROM, Capillary Refill (less than 2 seconds ) Neurological/Psych: Oriented x3 ED Course And Treatment O2 Sat by Pulse Oximetry: 97 (on RA) Pulse Ox Interpretation: Normal Progress Note: Morphine IM administered. BEE ROBBER showed that pt should still have enough medications. SPoke with the pt at length about the need for pain management. Disposition Counseled Patient/Family Regarding: Studies Performed, Diagnosis - Disposition Referrals: Anaya Laurent MD [Primary Care Provider] - Disposition: HOME/ ROUTINE Disposition Time: 00:40 Condition: FAIR Instructions: Chronic Pain (DC) Forms: [place] (Urdu) - Clinical Impression Clinical Impression: Chronic pain, Metastatic colon cancer in female - Scribe Statement The provider has reviewed the documentation as recorded by the Scribe (Norah Caban) Provider Attestation: All medical record entries made by the Scribe were at my direction and personally dictated by me. I have reviewed the chart and agree that the record accurately reflects my personal performance of the history, physical exam, medical decision making, and the department course for this patient. I have also personally directed, reviewed, and agree with the discharge instructions and disposition.
[2018-04-02 01:32] VITALS: BP 116/74; PULSE 89; TEMP 98.8
[2018-04-02 01:37] VITALS: O2SAT 97
== END 2018-04-02 01:33 | disposition home or self-care (01) ==
LOC: C.ER 00:10 → SUPCPDRO 00:10 → C.ER 01:33
DX: G89.29 Other chronic pain (principal); C18.9 Malignant neoplasm of colon, unspecified

== ENCOUNTER 2018-04-02 09:28 | Inpatient (IN) | payer MEDICAID, OTHER ==
[2018-04-02] MEDS ORDERED: Sodium Chloride 0.9% 1,000 ML IV ONE ×2 (09:51→11:56)
--- NOTE | 2018-04-02 10:09 | C.PDOC ---
History Of Present Illness Patient presents to ED c/o diffuse abdominal pain for > 1 week. Patient has PMHx of metastatic ileal CA s/p ileostomy; recent PET scan done shows left ovarian mass with possible fistula into rectum and new lung lesions. Hem/Onc is Dr. Marinelli. Patient was admitted 03/31 for similar symptoms, and was seen twice overnight in ED ([place] and [place]) for symptoms. Time Seen by Provider: 04/02/18 09:33 Chief Complaint (Nursing): Abdominal Pain History Per: Patient History/Exam Limitations: no limitations Onset/Duration Of Symptoms: Days Current Symptoms Are (Timing): Still Present Severity: Moderate Location Of Pain/Discomfort: Diffuse Quality Of Discomfort: "Pain" Associated Symptoms: denies: Nausea, Vomiting, Diarrhea Abnormal Vaginal Bleeding: No Past Medical History Reviewed: Historical Data, Nursing Documentation, Vital Signs Vital Signs: Last Vital Signs Temp 98.2 F 04/05/18 07:54 Pulse 92 H 04/05/18 07:54 Resp 20 04/05/18 07:54 BP 95/61 L 04/05/18 07:54 Pulse Ox 97 04/05/18 07:54 - Medical History PMH: Anxiety, Depression, 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 Negative for: Nausea, Vomiting , Diarrhea Genitourinary: Negative for: Dysuria, Hematuria Skin: Negative for: Rash Physical Exam - Physical Exam Appears: Well, Non-toxic, In Acute Distress (in moderate to severe pain ) Head: Normacephalic Oral Mucosa: Moist Cardiovascular: Rhythm Regular Respiratory: Normal Breath Sounds, No Rales, No Rhonchi, No Wheezing Gastrointestinal/Abdominal: Other (right sided ileostomy, diffuse TTP without rebound/gaurding) Back: No CVA Tenderness Neurological/Psych: Oriented x3 ED Course And Treatment - Laboratory Results Result Diagrams: 04/05/18 06:50 04/05/18 09:22 O2 Sat by Pulse Oximetry: 100 (RA) Pulse Ox Interpretation: Normal - Other Rad obs series X-Ray: Viewed By Me, Read By Radiologist Interpretation: Accession No. : [id number]. Patient Name / ID : CAREN WESTON / [id number]. Exam Date : 04/02/2018 10:54:09 ( Approved ). Study Comment : Sex / Age : F / 27Y. Creator : Uday Chacko MD. Dictator : Uday Chacko MD. Science Instructor : Supervisor Plating And Point Assembly : Uday Chacko MD. Approver2 : Report Date : 04/02/2018 13:35:02. My Comment : . PROCEDURE: Radiographs of the chest and abdomen (obstructive series). HISTORY: Abdominal pain, metastatic ileal carcinoma. COMPARISON: 02/28/2016 single-view chest. TECHNIQUE: AP radiograph of the chest, with upright and supine radiographs of the abdomen. FINDINGS: CHEST: Lungs: Clear. Cardiovascular: Normal size heart. No pulmonary vascular congestion.Venous access catheter in stable, satisfactory position. Pleura: No pleural fluid. No pneumothorax. Other findings: None. ABDOMEN AND PELVIS: Bowel: Unremarkable bowel gas pattern. No evidence of mechanical obstruction. Right lower quadrant ileostomy identified. Free air: None. Bones: Unremarkable. Other findings: None. IMPRESSION: No significant or acute findings to account for/ related to the clinical presentation. Progress Note: Blood work, UA, UPreg, obstructivce series ordered and reviewed. Patient given IV NS bolus, IV morphine. 2:15pm- Medicine resident aware of admission for Dr. Mcnamara. - Physician Consult Information Physician Contacted: Kj Mcnamara Jr. Outcome Of Conversation: Discussed patient with medicine control cabinet assembler, agrees with admission for metastatic ileal CA, intractable abdominal pain. Dr. Laurent spoken with for hem/onc, will see patient and give pain medications upon discharge. She states in the past two weeks patient had CT chest/abd/pelvis, PET scan and MRI of pelvis - patient has rectal mass with fistula, mass has gotten smaller since patient had chemo/radiation in [place]. Disposition - Disposition Disposition: HOSPITALIZED Disposition Time: 13:54 Condition: STABLE - Clinical Impression Clinical Impression: Ileal cancer, Metastatic cancer, Intractable abdominal pain Decision To Admit - Pt Status Changed To: Hospital Disposition Of: Inpatient - Admit Certification Admit to Inpatient:: After my assessment, the patient will require hospitalization for at least two midnights. This is because of the severity of symptoms shown, intensity of services needed, and/or the medical risk in this patient being treated as an outpatient. - InPatient: Physician Admission Certification:: SEE NOTES - . Bed Request Type: Regular Admitting Physician: Kj Mcnamara Jr. Patient Diagnosis: Ileal cancer, Metastatic cancer, Intractable abdominal pain
[2018-04-02] MEDS ORDERED: Morphine 4 MG/ML VIAL ONE ×3 (10:18→13:12)
[2018-04-02 10:26] LABS: BASO # 0.1 K/uL (0.0-0.2); BASO % 0.6 % (0.0-2.0); EOS # 0.3 K/uL (0.0-0.7); EOS % 3.3 % (0.0-4.0); HEMOGLOBIN 9.1 g/dL (11.0-16.0); LYMPH # 0.4 K/uL (1.0-4.3); LYMPH % 4.3 % (20.0-40.0); MEAN CELL VOLUME 85.4 fL (81.0-99.0); MEAN CORPUSCULAR HGB CONC 33.9 g/dL (33.0-37.0); MEAN PLATELET VOLUME 6.8 fL (7.2-11.7); MONO # 0.8 K/uL (0.0-0.8); MONO % 8.4 % (0.0-10.0); NEUT # 7.7 K/uL (1.8-7.0); NEUT % 83.4 % (50.0-75.0); PLATELET COUNT 423 K/uL (130-400); RBC 3.16 Mil/uL (3.80-5.20); RED CELL DISTRIBUTION WIDTH 15.7 % (11.5-14.5); WHITE BLOOD COUNT 9.2 K/uL (4.8-10.8)
[2018-04-02 10:48] LABS: ALBUMIN 3.3 g/dL (3.5-5.0); ALT/SGPT 27 U/L (9-52); AST/SGOT 22 U/L (14-36); BLOOD UREA NITROGEN 9 mg/dL (7-17); GFR AFRICAN-AMERICAN > 60; GFR NON-AFRICAN AMERICAN > 60
[2018-04-02 10:49] LABS: BANDS 10 % (0-2); EOSINOPHIL 2 % (0-4); LYMPHOCYTE 5 % (20-40); MONOCYTE 7 % (0-10); NEUTROPHIL 76 % (50-75); PLATELET ESTIMATE SLIGHTLY INCREASED (NORMAL); TOTAL CELLS COUNTED 100
[2018-04-02 10:50] LABS: ANISOCYTOSIS SLIGHT; HYPOCHROMIC SLIGHT
--- NOTE | 2018-04-02 13:36 | RAD ---
PROCEDURE: Radiographs of the chest and abdomen (obstructive series) HISTORY: Abdominal pain, metastatic ileal carcinoma COMPARISON: 02/28/2016 single-view chest TECHNIQUE: AP radiograph of the chest, with upright and supine radiographs of the abdomen. FINDINGS: CHEST: Lungs: Clear. Cardiovascular: Normal size heart. No pulmonary vascular congestion.Venous access catheter in stable, satisfactory position. Pleura: No pleural fluid. No pneumothorax. Other findings: None. ABDOMEN AND PELVIS: Bowel: Unremarkable bowel gas pattern. No evidence of mechanical obstruction. Right lower quadrant ileostomy identified. Free air: None. Bones: Unremarkable. Other findings: None. IMPRESSION: No significant or acute findings to account for/ related to the clinical presentation.
[2018-04-02 14:44] LABS: URINE BILIRUBIN NEGATIVE (NEGATIVE); URINE BLOOD NEGATIVE (NEGATIVE); URINE CLARITY Clear (Clear); URINE COLOR Straw (YELLOW); URINE GLUCOSE (UA) NORMAL (Normal); URINE LEUKOCYTE ESTERASE NEG Leu/uL (Negative); URINE PROTEIN NEGATIVE (NEGATIVE); URINE UROBILINOGEN NORMAL mg/dL (0.2-1.0)
[2018-04-02 16:44] VITALS: RESP 20
--- NOTE | 2018-04-02 16:55 | CP.PCM.HP ---
History of Present Illness - History of Present Illness History of Present Illness: CC: abdominal pain for 1 week HPI: 27-year-old female with history of metastatic ileal cancer s/p ileostomy in 2016 presents to ED for evaluation of 1 week abdominal pain. Patient states she has had pain since cancer diagnosis in 2016, which worsened 1 week ago. Pain is currently 10/10 "excruciating pain" described as "blades in the rectum and vagina." She states she is "basically bedbound due to pain." She sees Dr. Laurent as her oncologist who also provides her pain medications. She completed chemotherapy/radiation therapy in January 2018. Patient reports night sweats, abdominal pain, painful urination. Denies chest pain, palpitations, dyspnea, cough. She reports "occasionally doubling up on medications if the pain is bad," but denies overdose. Of note, patient was admitted to [facility] on 03/29/18 for similar symptoms and discharged 04/01/18, recommended for outpatient follow-up. After discharge, she was seen and discharged from the [facility] ED that evening (04/01/18), then again seen and discharged from [facility] ED this morning (04/02/18). PMD: Dr. Isac Solorio PMH: metastatic ileal cancer PSH: bowel resection with ileostomy placement (2015), left ankle repair (2001) Allergies: gabapentin (palpitations, hot flash, dizziness) Medications: oxycodone ER 60mg BID, oxycodone 10mg Q4 PRN Social history: former smoker, 1-2 cigarettes daily for 10 years, quit 3 years ago; denies current alcohol use; reports smoking CBD oil Family history: maternal uncle (colon polyps, unknown if cancer), maternal grandmother (colon cancer diagnosed age 82), paternal aunt (breast cancer diagnosed age 50s, paternal grandmother (history of ACS/PR) Per speaking with Dr. Laurent, patient has been in and out of hospitals and getting medications from different pharmacies. Patient has been warned that she had been warned that she has been flagged for polypharmacy. Patient was seen by pain management specialists who state there is a psych component to her pain linked to anxiety. Plan is to discuss with patient the need to go to a [facility] to see a surgeon that may operate on her cancer, but may not be operable at this time. Patient is currently on chemo and radiation with last treatment in January. For pain management, there is a pharmacist that Dr. Laurent will speak to patient about to see for pain management. Patient is to be discontinued on prescriptions prescribed on previous visit to the hospital. If patient still has the scripts, she can go fill them upon discharge. Present on Admission - Present on Admission Any Indicators Present on Admission: No History of DVT/PE: No History of Uncontrolled Diabetes: No Urinary Catheter: No Decubitus Ulcer Present: No Past Patient History - Infectious Disease Hx of Infectious Diseases: None - Past Medical History & Family History Past Medical History?: Yes - Past Social History Smoking Status: Current Some Days Smoker - CARDIAC Hx Hypertension: No - PULMONARY Hx Respiratory Disorders: No - NEUROLOGICAL Hx Seizures: Yes (when withdrawing from alcohol) - HEENT Hx HEENT Problems: No - RENAL Hx Chronic Kidney Disease: No - ENDOCRINE/METABOLIC Hx Endocrine Disorders: No - HEMATOLOGICAL/ONCOLOGICAL Hx Human Immunodeficiency Virus (HIV): No - INTEGUMENTARY Hx Dermatological Problems: No - MUSCULOSKELETAL/RHEUMATOLOGICAL Hx Musculoskeletal Disorders: No Hx Falls: No - GASTROINTESTINAL Other/Comment: SMALL BOWEL CA - GENITOURINARY/GYNECOLOGICAL Hx Sexually Transmitted Disorders: No - PSYCHIATRIC Hx Anxiety: Yes Hx Depression: Yes Hx Substance Use: Yes - SURGICAL HISTORY Hx Surgeries: Yes Hx Orthopedic Surgery: Yes (R ANKLE) Other/Comment: BOWEL RESECTION with colostomy - ANESTHESIA Hx Anesthesia: Yes Hx Anesthesia Reactions: No Hx Malignant Hyperthermia: No Meds Allergies/Adverse Reactions: Allergies Allergy/AdvReac Type Severity Reaction Status Date / Time gabapentin Allergy RASH Verified 04/02/18 05:00 Physical Exam - Constitutional Appears: Non-toxic, No Acute Distress - Head Exam Head Exam: ATRAUMATIC, NORMAL INSPECTION, NORMOCEPHALIC - Eye Exam Eye Exam: EOMI, Normal appearance Pupil Exam: NORMAL ACCOMODATION, PERRL - ENT Exam ENT Exam: Mucous Membranes Moist, Normal Exam - Neck Exam Neck exam: Positive for: Full Rom, Normal Inspection. Negative for: Thyromegaly - Respiratory Exam Respiratory Exam: Clear to Auscultation Bilateral, NORMAL BREATHING PATTERN. absent: Accessory Muscle Use - Cardiovascular Exam Cardiovascular Exam: REGULAR RHYTHM, +S1, +S2 - GI/Abdominal Exam GI & Abdominal Exam: Normal Bowel Sounds, Soft Additional comments: Patient expresses tenderness to palpation of left lower quadrant/lef inguinal region, but no tenderness is palpated on physical exam. ileostomy at right lower quadrant draining stool, pink, vascularized, no signs of drainage or erythema. - Extremities Exam Extremities exam: Positive for: full ROM. Negative for: pedal edema - Back Exam Back exam: FULL ROM, NORMAL INSPECTION. absent: paraspinal tenderness - Neurological Exam Neurological exam: Alert, CN II-XII Intact, Normal Gait - Psychiatric Exam Psychiatric exam: Normal Affect, Normal Mood - Skin Skin Exam: Dry, Intact Results - Vital Signs Recent Vital Signs: Last Vital Signs Temp 98 F 04/02/18 16:09 Pulse 78 04/02/18 16:09 Resp 18 04/02/18 16:09 BP 126/73 04/02/18 16:09 Pulse Ox 98 04/02/18 16:09 - Labs Result Diagrams: 04/02/18 10:21 04/02/18 10:21 Labs: Laboratory Results - last 24 hr 04/02/18 04/02/18 04/02/18 10:21 10:21 13:53 WBC 9.2 RBC 3.16 L Hgb 9.1 L Hct 27.0 L MCV 85.4 MCH 29.0 MCHC 33.9 RDW 15.7 H Plt Count 423 H MPV 6.8 L Neut % (Auto) 83.4 H Lymph % (Auto) 4.3 L [place] % (Auto) 8.4 Eos % (Auto) 3.3 Baso % (Auto) 0.6 Neut # (Auto) 7.7 H Lymph # (Auto) 0.4 L [place] # (Auto) 0.8 Eos # (Auto) 0.3 Baso # (Auto) 0.1 Neutrophils % (Manual) 76 H Band Neutrophils % 10 H Lymphocytes % (Manual) 5 L Monocytes % (Manual) 7 Eosinophils % (Manual) 2 Platelet Estimate Slightly increased H Hypochromasia (manual) Slight Anisocytosis (manual) Slight Sodium 141 Potassium 3.6 Chloride 104 Carbon Dioxide 28 Anion Gap 13 BUN 9 Creatinine 0.4 L Est GFR ( Amer) > 60 Est GFR (Non-Af Amer) > 60 Random Glucose 103 Calcium 9.0 Total Bilirubin 0.3 AST 22 ALT 27 Alkaline Phosphatase 88 Total Protein 6.6 Albumin 3.3 L D Globulin 3.3 Albumin/Globulin Ratio 1.0 Beta HCG, Quant < 2.39 Urine Color Straw Urine Clarity Clear Urine pH 7.0 Ur Specific [place] 1.008 Urine Protein Negative Urine Glucose (UA) Normal Urine Ketones Negative Urine Blood Negative Urine Nitrate Negative Urine Bilirubin Negative Urine Urobilinogen Normal Ur Leukocyte Esterase Neg Urine WBC (Auto) 1 Urine RBC (Auto) < 1 Urine HCG, Qual 04/02/18 13:53 WBC RBC Hgb Hct MCV MCH MCHC RDW Plt Count MPV Neut % (Auto) Lymph % (Auto) [place] % (Auto) Eos % (Auto) Baso % (Auto) Neut # (Auto) Lymph # (Auto) [place] # (Auto) Eos # (Auto) Baso # (Auto) Neutrophils % (Manual) Band Neutrophils % Lymphocytes % (Manual) Monocytes % (Manual) Eosinophils % (Manual) Platelet Estimate Hypochromasia (manual) Anisocytosis (manual) Sodium Potassium Chloride Carbon Dioxide Anion Gap BUN Creatinine Est GFR ( Amer) Est GFR (Non-Af Amer) Random Glucose Calcium Total Bilirubin AST ALT Alkaline Phosphatase Total Protein Albumin Globulin Albumin/Globulin Ratio Beta HCG, Quant Urine Color Urine Clarity Urine pH Ur Specific [place] Urine Protein Urine Glucose (UA) Urine Ketones Urine Blood Urine Nitrate Urine Bilirubin Urine Urobilinogen Ur Leukocyte Esterase Urine WBC (Auto) Urine RBC (Auto) Urine HCG, Qual Negative Assessment & Plan - Assessment and Plan (Free Text) Assessment: 27F with metastatic ileal cancer s/p ileostomy here for pain management Ileal cancer with metastasis s/p ileostomy 2016 maintain ileostomy care am labs. Pain: continue pain management as is oxycodone 10 mg PO Q4H PRN Oxycontin ER 60mg PO Q12 [facility] Fentanyl patch 100mcg/hr TD Q72H Oncologist: Dr. Laurent Diet: Heart Healthy Diet Patient to be seen by Dr. Laurent with advice to go to [facility] for further management of cancer (ie to be seen by surgeon) and to see a specific pharmacist for pain management. discussed with Dr. Anders Noyola DO PGY1 - Date & Time Date: 04/02/18 Time: 19:44
[2018-04-02] MEDS ORDERED: HYDROmorphone 1 mg/ml ISec IVP PRN (18:19)
[2018-04-02] MEDS ORDERED: Morphine 4 MG/ML VIAL IVP STA (19:00)
[2018-04-02] MEDS ORDERED: Morphine 4 MG/ML VIAL IVP ONE (20:30)
[2018-04-02] MEDS: oxyCODONE 20 mg ER Tab (oxyCONTIN) PO SCH (22:45)
[2018-04-03] MEDS ORDERED: Lidocaine 2% Jelly (30 ml) TOP ONE (00:26)
[2018-04-03] MEDS: oxyCODONE 10 mg Immediate Release Tab PO PRN ×5 (02:34→22:15)
--- NOTE | 2018-04-03 06:22 | CP.PCM.PN ---
Subjective - Date & Time of Evaluation Date of Evaluation: 04/03/18 Time of Evaluation: 06:20 - Subjective Subjective: PGY-[address] Mcnamara's Service: Pt seen and examined at bedside. Nursing reports no acute events overnight. Patient found sitting in chair in hallway, calmly chatting with nursing. Patient reports "the worst possible 10/10 pain" in her "rectum area." She states her current medication regimen approved by pain management is not working and only thing that works is Dilaudid. States she is currently being worked up by Dr. Laurent for debulking/palliative surgery, but has not seen GI surgeons yet. Admits she is passing stool, flatus, and urine, but all with difficulty/pain when pushing. Denies blood in stool. No chest pain, palpitations , or SOB. Objective - Vital Signs/Intake and Output Vital Signs (last 24 hours): Temp Pulse Resp BP Pulse Ox 97.5 F L 77 20 105/67 99 04/03/18 00:08 04/03/18 00:08 04/03/18 00:08 04/03/18 00:08 04/03/18 00:08 Intake and Output: 04/02/18 04/03/18 18:59 06:59 Intake Total 300 Balance 300 - Medications Medications: Current Medications Fentanyl (Duragesic) 1 patch TD Q72H [facility] Last Admin: 04/02/18 19:11 Dose: 1 patch Heparin Sodium (Porcine) (Heparin) 5,000 units SC Q8 [facility] Last Admin: 04/03/18 05:43 Dose: 5,000 units Oxycodone HCl (Oxycodone Immediate Release Tab) 10 mg PO Q4H PRN PRN Reason: BREAKTHROUGH PAIN Last Admin: 04/03/18 02:34 Dose: 10 mg Oxycodone HCl (Oxycontin Extended Release Tab) 60 mg PO Q12 [facility] Last Admin: 04/02/18 22:45 Dose: 60 mg - Labs Labs: 04/02/18 10:21 04/02/18 10:21 - Additional Findings Additional findings: - Constitutional Appears: Non-toxic, No Acute Distress - Head Exam Head Exam: ATRAUMATIC, NORMAL INSPECTION, NORMOCEPHALIC - Eye Exam Eye Exam: EOMI, Normal appearance Pupil Exam: NORMAL ACCOMODATION, PERRL - ENT Exam ENT Exam: Mucous Membranes Moist, Normal Exam - Neck Exam Neck exam: Positive for: Full Rom, Normal Inspection. Negative for: Thyromegaly - Respiratory Exam Respiratory Exam: Clear to Auscultation Bilateral, NORMAL BREATHING PATTERN. absent: Accessory Muscle Use - Cardiovascular Exam Cardiovascular Exam: REGULAR RHYTHM, +S1, +S2 - GI/Abdominal Exam GI & Abdominal Exam: Normal Bowel Sounds, Soft Additional comments: LLQ minimal tenderness ileostomy: RLQ, draining brown-soft stool, pink, vascularized, no signs of drainage or erythema. Rectal exam refused - Extremities Exam Extremities exam: Positive for: full ROM. Negative for: pedal edema - Back Exam Back exam: FULL ROM, NORMAL INSPECTION. absent: paraspinal tenderness - Neurological Exam Neurological exam: Alert, CN II-XII Intact, Normal Gait - Psychiatric Exam Psychiatric exam: Normal Affect, Normal Mood - Skin Skin Exam: Dry, Intact Assessment and Plan - Assessment and Plan (Free Text) Plan: Ileal cancer with metastasis s/p ileostomy 2016 Admit to med/surg Abd xray (04/03/18): No significant or acute findings to account for/ related to the clinical presentation. B-Hcg negative Pain: continue pain management as is oxycodone 10 mg PO Q4H PRN Oxycontin ER 60mg PO Q12 [facility] Fentanyl patch 100mcg/hr TD Q72H Oncologist: Dr. Benjaminathingal - f/u reccs Prophylaxis Heparin 5000u Q8H GI not indicated Diet: Heart Healthy Diet Disposition: Patient with multiple recent admissions seeking pain control for metastatic cancer. Had discussion with attending Dr. Mcnamara regarding pain regimen. No changes to be made to regimen started by pain management on previous admission. Danny Baeza PGY-2 D/w Dr. Mcnamara
[2018-04-03 07:15] LABS: BASO % 0.4 % (0.0-2.0); EOS # 0.3 K/uL (0.0-0.7); EOS % 5.3 % (0.0-4.0); HEMOGLOBIN 9.8 g/dL (11.0-16.0); LYMPH # 0.5 K/uL (1.0-4.3); MEAN CELL VOLUME 85.4 fL (81.0-99.0); MEAN CORPUSCULAR HEMOGLOBIN 29.5 pg (27.0-31.0); MEAN CORPUSCULAR HGB CONC 34.5 g/dL (33.0-37.0); MEAN PLATELET VOLUME 6.5 fL (7.2-11.7); MONO # 0.6 K/uL (0.0-0.8); MONO % 10.2 % (0.0-10.0); NEUT # 4.8 K/uL (1.8-7.0); NEUT % 76.1 % (50.0-75.0); PLATELET COUNT 448 K/uL (130-400); RBC 3.32 Mil/uL (3.80-5.20); WHITE BLOOD COUNT 6.3 K/uL (4.8-10.8)
[2018-04-03 07:51] LABS: ALB/GLOB RATIO 1.1 (1.0-2.1); ALBUMIN 3.9 g/dL (3.5-5.0); ALT/SGPT 15 U/L (9-52); AST/SGOT 20 U/L (14-36); BLOOD UREA NITROGEN 9 mg/dL (7-17); CALCIUM 9.2 mg/dl (8.6-10.4); GFR AFRICAN-AMERICAN > 60; GFR NON-AFRICAN AMERICAN > 60
[2018-04-03 09:08] LABS: BANDS 2 % (0-2); EOSINOPHIL 3 % (0-4); LYMPHOCYTE 11 % (20-40); MONOCYTE 11 % (0-10); NEUTROPHIL 73 % (50-75); TOTAL CELLS COUNTED 100
[2018-04-03 09:09] LABS: ANISOCYTOSIS SLIGHT; HYPOCHROMIC SLIGHT; OVALOCYTES SLIGHT; PLATELET ESTIMATE INCREASED (NORMAL); POIKILOCYTOSIS SLIGHT; POLYCHROMIC SLIGHT
[2018-04-03 09:11] LABS: LARGE PLATELETS PRESENT
[2018-04-03] MEDS: oxyCODONE 20 mg ER Tab (oxyCONTIN) PO SCH ×3 (10:29→23:54)
[2018-04-03] MEDS: Potassium Chloride 20 mEq ER Tab PO ONE ×2 (11:00→14:13)
[2018-04-03] MEDS ORDERED: POLYETHYLENE GLYCOL 3350 17 GM/Dose PACKET PO ONE (13:15)
[2018-04-03] MEDS ORDERED: Morphine 4 MG/ML VIAL IV ONE (18:00)
[2018-04-04] MEDS: oxyCODONE 10 mg Immediate Release Tab PO PRN ×5 (02:10→18:30)
[2018-04-04 08:18] LABS: BASO % 0.5 % (0.0-2.0); EOS # 0.3 K/uL (0.0-0.7); EOS % 3.5 % (0.0-4.0); HEMOGLOBIN 10.2 g/dL (11.0-16.0); LYMPH # 0.6 K/uL (1.0-4.3); LYMPH % 6.1 % (20.0-40.0); MEAN CELL VOLUME 85.7 fL (81.0-99.0); MEAN CORPUSCULAR HEMOGLOBIN 29.2 pg (27.0-31.0); MEAN PLATELET VOLUME 7.3 fL (7.2-11.7); MONO # 1.2 K/uL (0.0-0.8); MONO % 12.4 % (0.0-10.0); NEUT # 7.2 K/uL (1.8-7.0); NEUT % 77.5 % (50.0-75.0); NRBC % 0.1 % (0.0-2.0); PLATELET COUNT 481 K/uL (130-400); RBC 3.51 Mil/uL (3.80-5.20); RED CELL DISTRIBUTION WIDTH 15.6 % (11.5-14.5); WHITE BLOOD COUNT 9.3 K/uL (4.8-10.8)
--- NOTE | 2018-04-04 08:41 | CP.PCM.PN ---
Subjective - Date & Time of Evaluation Date of Evaluation: 04/04/18 Time of Evaluation: 08:38 - Subjective Subjective: PGY2 note for Dr. Mcnamara's service: Pt seen and examined at bedside. Nursing reports patient asking for increase in pain medication. Had long conversation with Dr. Laurent regarding plan of care moving forward. Pt unfortunately has not been following closely as outpatient, and has gone to many hospitals over the past few weeks. Has seen surgeon in [place] who has stated cancer is inoperable. Recent PET scan showed lung mets. Patient reports pain is only controlled with IV pain medications ( best being dilaudid). Pain is 10/10 in lower back/rectum/vaginal area. Denies jim bleeding, chest pain, or SOB. Objective - Vital Signs/Intake and Output Vital Signs (last 24 hours): Temp Pulse Resp BP Pulse Ox 98.8 F 98 H 20 98/63 L 98 04/04/18 00:00 04/04/18 00:00 04/04/18 00:00 04/04/18 05:45 04/04/18 00:00 Intake and Output: 04/04/18 04/04/18 06:59 18:59 Intake Total 320 480 Output Total 300 Balance 320 180 - Medications Medications: Current Medications Heparin Sodium (Porcine) (Heparin) 5,000 units SC Q8 [facility] Last Admin: 04/04/18 07:11 Dose: Not Given Oxycodone HCl (Oxycontin Extended Release Tab) 60 mg PO Q12 [facility] Last Admin: 04/03/18 23:54 Dose: 60 mg Oxycodone HCl (Oxycodone Immediate Release Tab) 20 mg PO Q4H PRN PRN Reason: BREAKTHROUGH PAIN Last Admin: 04/04/18 06:09 Dose: 20 mg - Labs Labs: 04/04/18 08:05 04/03/18 07:06 - Additional Findings Additional findings: - Constitutional Appears: Non-toxic, No Acute Distress - Head Exam Head Exam: ATRAUMATIC, NORMAL INSPECTION, NORMOCEPHALIC - Eye Exam Eye Exam: EOMI, Normal appearance Pupil Exam: NORMAL ACCOMODATION, PERRL - ENT Exam ENT Exam: Mucous Membranes Moist, Normal Exam - Neck Exam Neck exam: Positive for: Full Rom, Normal Inspection. Negative for: Thyromegaly - Respiratory Exam Respiratory Exam: Clear to Auscultation Bilateral, NORMAL BREATHING PATTERN. absent: Accessory Muscle Use - Cardiovascular Exam Cardiovascular Exam: REGULAR RHYTHM, +S1, +S2 - GI/Abdominal Exam GI & Abdominal Exam: Normal Bowel Sounds, Soft Additional comments: LLQ minimal tenderness ileostomy: RLQ, draining brown-soft stool, pink, vascularized, no signs of drainage or erythema. Rectal/vaginal exam refused - Extremities Exam Extremities exam: Positive for: full ROM. Negative for: pedal edema - Back Exam Back exam: FULL ROM, NORMAL INSPECTION. absent: paraspinal tenderness - Neurological Exam Neurological exam: Alert, CN II-XII Intact, Normal Gait - Psychiatric Exam Psychiatric exam: Normal Affect, Normal Mood - Skin Skin Exam: Dry, Intact Assessment and Plan - Assessment and Plan (Free Text) Plan: Ileal cancer with metastasis s/p ileostomy 2016 Admit to med/surg Abd xray (04/03/18): No significant or acute findings to account for/ related to the clinical presentation. B-Hcg negative Pain: continue pain management as is Oxycontin ER 60mg PO Q12 [facility] Oxycodone 20mg Q4H PRN Discontinue fentanyl patch Oncologist: Dr. Laurent - will need outpatient follow up - will need to find one pharmacist and stick with them Prophylaxis Heparin 5000u Q8H GI not indicated Diet: Heart Healthy Diet Disposition: Patient with multiple recent admissions seeking pain control for metastatic cancer. Changes made to pain regimen after discussing with attending , Dr. Mcnamara. Plan would be discharge tomorrow when pharmacy's open on new regimen. Danny Baeza PGY-2 D/w Dr. Mcnamara
[2018-04-04 09:04] LABS: ALBUMIN 3.8 g/dL (3.5-5.0); ALT/SGPT 12 U/L (9-52); AST/SGOT 35 U/L (14-36); BLOOD UREA NITROGEN 6 mg/dL (7-17); CALCIUM 9.3 mg/dl (8.6-10.4); GFR AFRICAN-AMERICAN > 60; GFR NON-AFRICAN AMERICAN > 60
[2018-04-04] MEDS: oxyCODONE 20 mg ER Tab (oxyCONTIN) PO SCH ×2 (09:45→21:26)
[2018-04-04 10:10] LABS: BANDS 4 % (0-2); BASOPHIL 1 % (0-2); EOSINOPHIL 5 % (0-4); LYMPHOCYTE 10 % (20-40); MONOCYTE 13 % (0-10); NEUTROPHIL 67 % (50-75); TOTAL CELLS COUNTED 100
[2018-04-04 10:11] LABS: ANISOCYTOSIS SLIGHT; PLATELET ESTIMATE SLIGHTLY INCREASED (NORMAL)
[2018-04-05] MEDS: oxyCODONE 10 mg Immediate Release Tab PO PRN ×3 (00:36→08:32)
[2018-04-05 06:58] LABS: BASO % 0.4 % (0.0-2.0); EOS # 0.2 K/uL (0.0-0.7); EOS % 2.2 % (0.0-4.0); HEMOGLOBIN 11.7 g/dL (11.0-16.0); LYMPH # 0.6 K/uL (1.0-4.3); LYMPH % 6.1 % (20.0-40.0); MEAN CELL VOLUME 85.2 fL (81.0-99.0); MEAN CORPUSCULAR HEMOGLOBIN 29.2 pg (27.0-31.0); MEAN CORPUSCULAR HGB CONC 34.3 g/dL (33.0-37.0); MEAN PLATELET VOLUME 7.1 fL (7.2-11.7); MONO # 1.4 K/uL (0.0-0.8); MONO % 14.4 % (0.0-10.0); NEUT # 7.3 K/uL (1.8-7.0); NEUT % 76.9 % (50.0-75.0); PLATELET COUNT 525 K/uL (130-400); WHITE BLOOD COUNT 9.5 K/uL (4.8-10.8)
[2018-04-05 07:55] VITALS: BP 95/61; PULSE 92; TEMP 98.2
[2018-04-05 08:09] LABS: ALB/GLOB RATIO 0.9 (1.0-2.1); ALBUMIN 2.4 g/dL (3.5-5.0); ALT/SGPT 18 U/L (9-52); AST/SGOT 13 U/L (14-36); BLOOD UREA NITROGEN 4 mg/dL (7-17); GFR AFRICAN-AMERICAN > 60; GFR NON-AFRICAN AMERICAN > 60
[2018-04-05] MEDS ORDERED: Calcium-Vit D 500 mg-200 Units Tab UD PO STA (08:21)
[2018-04-05] MEDS ORDERED: Dextrose 50% SYRINGE Inj (50 ml) IV STA (08:55)
[2018-04-05] MEDS ORDERED: Magnesium Sulfate 1 gm in D5W 1 GM/100 ML BAG IVPB SCH (09:00)
[2018-04-05] MEDS: oxyCODONE 20 mg ER Tab (oxyCONTIN) PO SCH (09:11)
[2018-04-05 09:48] LABS: ALT/SGPT 24 U/L (9-52); AST/SGOT 43 U/L (14-36); BLOOD UREA NITROGEN 9 mg/dL (7-17); CALCIUM 10.3 mg/dl (8.6-10.4); GFR AFRICAN-AMERICAN > 60; GFR NON-AFRICAN AMERICAN > 60
[2018-04-05] MEDS ORDERED: Potassium Chloride 20 mEq ER Tab PO SCH (10:00)
[2018-04-05] MEDS ORDERED: Calcium-Vit D 500 mg-200 Units Tab UD PO SCH (10:00)
[2018-04-05 10:34] LABS: CALCIUM 5.9 mg/dl (8.6-10.4)
[2018-04-05 10:35] LABS: ANISOCYTOSIS SLIGHT; BANDS 1 % (0-2); EOSINOPHIL 1 % (0-4); HYPOCHROMIC SLIGHT; LYMPHOCYTE 3 % (20-40); MONOCYTE 10 % (0-10); NEUTROPHIL 85 % (50-75); PLATELET ESTIMATE INCREASED (NORMAL); POLYCHROMIC SLIGHT; TOTAL CELLS COUNTED 100
--- NOTE | 2018-04-05 13:27 | CP.PCM.DIS ---
Provider - Provider Date of Admission: 04/02/18 13:54 Attending physician: Kj Mcnamara Jr, MD Consults: Dr. Laurent Time Spent in preparation of Discharge (in minutes): 45 Hospital Course - Lab Results Lab Results: Most Recent Lab Values WBC 9.5 K/uL (4.8-10.8) 04/05/18 06:50 RBC 4.00 Mil/uL (3.80-5.20) 04/05/18 06:50 Hgb 11.7 g/dL (11.0-16.0) 04/05/18 06:50 Hct 34.1 % (34.0-47.0) 04/05/18 06:50 MCV 85.2 fL (81.0-99.0) 04/05/18 06:50 MCH 29.2 pg (27.0-31.0) 04/05/18 06:50 MCHC 34.3 g/dL (33.0-37.0) 04/05/18 06:50 RDW 16.0 % (11.5-14.5) H 04/05/18 06:50 Plt Count 525 K/uL (130-400) H 04/05/18 06:50 MPV 7.1 fL (7.2-11.7) L 04/05/18 06:50 Neut % (Auto) 76.9 % (50.0-75.0) H 04/05/18 06:50 Lymph % (Auto) 6.1 % (20.0-40.0) L 04/05/18 06:50 H[place]ett % (Auto) 14.4 % (0.0-10.0) H 04/05/18 06:50 Eos % (Auto) 2.2 % (0.0-4.0) 04/05/18 06:50 Baso % (Auto) 0.4 % (0.0-2.0) 04/05/18 06:50 Neut # (Auto) 7.3 K/uL (1.8-7.0) H 04/05/18 06:50 Lymph # (Auto) 0.6 K/uL (1.0-4.3) L 04/05/18 06:50 [place]ett # (Auto) 1.4 K/uL (0.0-0.8) H 04/05/18 06:50 Eos # (Auto) 0.2 K/uL (0.0-0.7) 04/05/18 06:50 Baso # (Auto) 0.0 K/uL (0.0-0.2) 04/05/18 06:50 Neutrophils % (Manual) 85 % (50-75) H 04/05/18 06:50 Band Neutrophils % 1 % (0-2) 04/05/18 06:50 Lymphocytes % (Manual) 3 % (20-40) L 04/05/18 06:50 Monocytes % (Manual) 10 % (0-10) 04/05/18 06:50 Eosinophils % (Manual) 1 % (0-4) 04/05/18 06:50 Basophils % (Manual) 1 % (0-2) 04/04/18 08:05 Platelet Estimate Increased (NORMAL) H 04/05/18 06:50 Large Platelets Present 04/03/18 07:06 Polychromasia Slight 04/05/18 06:50 Hypochromasia (manual) Slight 04/05/18 06:50 Poikilocytosis (manual Slight 04/03/18 07:06 Anisocytosis (manual) Slight 04/05/18 06:50 Ovalocytes Slight 04/03/18 07:06 Sodium 133 mmol/L (132-148) 04/05/18 09:22 Potassium 4.5 mmol/L (3.6-5.2) 04/05/18 09:22 Chloride 93 mmol/L (98-107) L D 04/05/18 09:22 Carbon Dioxide 28 mmol/L (22-30) 04/05/18 09:22 Anion Gap 16 (10-20) 04/05/18 09:22 BUN 9 mg/dL (7-17) 04/05/18 09:22 Creatinine 0.6 mg/dL (0.7-1.2) L 04/05/18 09:22 Est GFR ( Amer) > 60 04/05/18 09:22 Est GFR (Non-Af Amer) > 60 04/05/18 09:22 Random Glucose 189 mg/dL (65-105) H 04/05/18 09:22 Calcium 10.3 mg/dl (8.6-10.4) 04/05/18 09:22 Phosphorus 5.4 mg/dL (2.5-4.5) H 04/05/18 09:22 Magnesium 4.1 mg/dL (1.6-2.3) H 04/05/18 09:22 Total Bilirubin 0.6 mg/dL (0.2-1.3) 04/05/18 09:22 AST 43 U/L (14-36) H D 04/05/18 09:22 ALT 24 U/L (9-52) 04/05/18 09:22 Alkaline Phosphatase 101 U/L (38-126) 04/05/18 09:22 Total Protein 8.1 g/dL (6.3-8.3) 04/05/18 09: Albumin 4.0 g/dL (3.5-5.0) 04/05/18 09: Globulin 4.1 gm/dL (2.2-3.9) H 04/05/18 09:22 Albumin/Globulin Ratio 1.0 (1.0-2.1) 04/05/18 09: Beta HCG, Quant < 2.39 mIU/ML 04/02/18 10:21 Urine Color Straw (YELLOW) 04/02/18 13:53 Urine Clarity Clear (Clear) 04/02/18 13:53 Urine pH 7.0 (5.0-8.0) 04/02/18 13:53 Ur Specific Orange 1.008 (1.003-1.030) 04/02/18 13:53 Urine Protein Negative mg/dL (NEGATIVE) 04/02/18 13:53 Urine Glucose (UA) Normal mg/dL (Normal) 04/02/18 13:53 Urine Ketones Negative mg/dL (NEGATIVE) 04/02/18 13:53 Urine Blood Negative (NEGATIVE) 04/02/18 13:53 Urine Nitrate Negative (NEGATIVE) 04/02/18 13:53 Urine Bilirubin Negative (NEGATIVE) 04/02/18 13:53 Urine Urobilinogen Normal mg/dL (0.2-1.0) 04/02/18 13:53 Ur Leukocyte Esterase Neg Hang/uL (Negative) 04/02/18 13:53 Urine WBC (Auto) 1 /hpf (0-5) 04/02/18 13:53 Urine RBC (Auto) < 1 /hpf (0-3) 04/02/18 13:53 Urine HCG, Qual Negative (NEGATIVE) 04/02/18 13:53 - Hospital Course Hospital Course: HPI: 27-year-old female with history of metastatic ileal cancer s/p ileostomy in 2016 presents to ED for evaluation of 1 week abdominal pain. Patient states she has had pain since cancer diagnosis in 2016, which worsened 1 week ago. Pain is currently 10/10 "excruciating pain" described as "blades in the rectum and vagina." She states she is "basically bedbound due to pain." She sees Dr. Laurent as her oncologist who also provides her pain medications. She completed chemotherapy/radiation therapy in January 2018. Patient reports night sweats, abdominal pain, painful urination. Denies chest pain, palpitations, dyspnea, cough. She reports "occasionally doubling up on medications if the pain is bad," but denies overdose. Of note, patient was admitted to [facility] on 03/29/18 for similar symptoms and discharged 04/01/18, recommended for outpatient follow-up. After discharge, she was seen and discharged from the [facility] ED that evening (04/01/18), then again seen and discharged from [facility] ED this morning (04/02/18). Per speaking with Dr. Laurent, patient has been in and out of hospitals and getting medications from different pharmacies. Patient has been warned that she had been warned that she has been flagged for polypharmacy. Patient was seen by pain management specialists who state there is a psych component to her pain linked to anxiety. Plan is to discuss with patient the need to [facility] to see a surgeon that may operate on her cancer, but may not be operable at this time. Patient is currently on chemo and radiation with last treatment in January. For pain management, Dr. Laurent offered pain management specialists and a pharmacist to speak to. Patient is to be discontinued on prescriptions prescribed on previous visit to the hospital. If patient still has the scripts, she can go fill them upon discharge. Patient was seen during hospital stay and was given pain management. Oxycontin 60, Oxycodone 10 increased to Oxycodone 20, fentanyl increased to 100 mcg/hr and then discontinued, Please see EMR for futher information. This is a brief summary of Patient's stay at the hospital. Patient signed AMA 04/05/18 this morning - Date & Time of H&P Date of H&P: 04/05/18 Time of H&P: 13:25 Discharge Exam - Head Exam Head Exam: ATRAUMATIC, NORMAL INSPECTION, NORMOCEPHALIC - Eye Exam Eye Exam: EOMI, Normal appearance - ENT Exam ENT Exam: Mucous Membranes Moist - Respiratory Exam Respiratory Exam: Accessory Muscle Use, NORMAL BREATHING PATTERN - Cardiovascular Exam Cardiovascular Exam: REGULAR RHYTHM, +S1, +S2 - GI/Abdominal Exam GI & Abdominal Exam: Normal Bowel Sounds, Soft. absent: Unremarkable Additional comments: right ileostomy bag draining - Extremities Exam Extremities exam: full ROM - Back Exam Back exam: FULL ROM, NORMAL INSPECTION - Neurological Exam Neurological exam: Alert, CN II-XII Intact, Oriented x3 - Psychiatric Exam Psychiatric exam: Normal Affect, Normal Mood - Skin Skin Exam: Dry, Intact, Normal Color Discharge Plan - Follow Up Plan Condition: FAIR Disposition: AGAINST MEDICAL ADVICE
[2018-04-07 16:27] VITALS: O2SAT 100
== END 2018-04-05 11:08 | disposition left against medical advice (07) | DRG 463 ==
LOC: C.ER 09:28 → C.9E 13:54 → C.3T 15:01
PROVIDERS: ADMIT Internal Medicine; ATTEND Internal Medicine
DX: G89.3 Neoplasm related pain (acute) (chronic) (principal); C17.2 Malignant neoplasm of ileum; C78.00 Secondary malignant neoplasm of unspecified lung; F41.9 Anxiety disorder, unspecified; F12.90 Cannabis use, unspecified, uncomplicated; Z72.0 Tobacco use; Z92.3 Personal history of irradiation; Z92.21 Personal history of antineoplastic chemotherapy; Z88.8 Allergy status to other drugs, medicaments and biological substances; Z93.2 Ileostomy status; Z90.49 Acquired absence of other specified parts of digestive tract